=== PATIENT | male | born 1955 | race Caucasian/White ===

== ENCOUNTER 2018-07-18 04:29 | Emergency (ER) | payer MEDICAID, SELFPAY ==
[2018-07-18 06:51] LABS: HCT 46.7 % (40.0-50.0); HGB 15.8 g/dL (13.5-17.5); Mean Corp. HGB Concentration 33.8 g/dL (32.0-36.0); Mean Corpuscular Hemoglobin 31.8 pg (27.0-33.0); RBC 4.97 m/cumm (4.50-6.00)
[2018-07-18 06:52] LABS: Absolute Basophil Count 0.01 k/cumm (0.0-0.2); Absolute Eosinophil Count 0.18 k/cumm (0.0-0.7); Absolute Lymphocyte Count 1.87 k/cumm (1.2-3.4); Absolute Monocyte Count 2.04 k/cumm (0.11-0.7); Absolute Neutrophil Count 15.45 k/cumm (1.2-6.7); Basophils % 0.1; Eosinophils % 0.9; Immature Grans % 0.3; Lymphocytes % 9.5; Mean Platelet Volume 11.5 fL (8.0-11.0); Monocytes % 10.4; Neutrophils % 78.8; Platelet Count 173 x1000/uL (130-400); RBC Distribution Width 14.1 % (11.8-14.1)
[2018-07-18 06:56] LABS: Anion Gap 6.8 mmol/L (3-11); BUN 28 mg/dL (7-18); CO2 28.2 mmol/L (21.0-32.0); CREATININE 1.09 mg/dL (0.70-1.30); Chloride 104 mmol/L (98-107); Glucose 128 mg/dL (70-100); Magnesium 2.1 mg/dL (1.8-2.4); Sodium 139 mmol/L (136-145); Troponin I < 0.02 ng/mL (0.00-0.06)
== END 2018-07-18 07:00 | disposition home or self-care (01) ==
LOC: ER 07:07
PROVIDERS: Emergency Provider Emergency Medicine; PCP Internal Medicine
DX: T78.02XA Anaphylactic reaction due to shellfish (crustaceans), initial encounter (principal); I10 Essential (primary) hypertension
CPT/HCPCS: 36415; 80048; 93005; 96374; 96375; 99284; 83735; 84484; 85025; 93010

== ENCOUNTER 2018-12-20 12:09 | Outpatient (REF) | payer MEDICAID, SELFPAY ==
[2018-12-20 21:02] LABS: HCT 43.2 % (40.0-50.0); HGB 14.1 g/dL (13.5-17.5); Mean Corp. HGB Concentration 32.6 g/dL (32.0-36.0); Mean Corpuscular Hemoglobin 31.2 pg (27.0-33.0); Mean Corpuscular Volume 95.6 fL (80-95); Mean Platelet Volume 11.9 fL (8.0-11.0); Platelet Count 242 x1000/uL (130-400); RBC 4.52 m/cumm (4.50-6.00); RBC Distribution Width 13.9 % (11.8-14.1)
[2018-12-23 10:12] LABS: PSA, Diagnostic 2.4 ng/ml (0-4.5)
== END 2018-12-20 12:29 ==
LOC: NCHCN 12:09
PROVIDERS: PCP Internal Medicine; Visit Provider Internal Medicine
DX: D72.9 Disorder of white blood cells, unspecified (principal); Z12.5 Encounter for screening for malignant neoplasm of prostate; Z00.00 Encounter for general adult medical examination without abnormal findings
CPT/HCPCS: 85027; 84153

== ENCOUNTER → 2019-08-22 09:43 | Outpatient (BNVA) | payer MEDICARE, SELFPAY | PROVIDERS: PCP Internal Medicine; Referring Provider Internal Medicine; Visit Provider Physical Therapy Assistant | DX: R19.5 Other fecal abnormalities (principal); I10 Essential (primary) hypertension | CPT/HCPCS: 99213 ==

== ENCOUNTER 2019-09-29 09:15 | Outpatient (CLI) | payer MEDICARE, SELFPAY ==
[2019-09-30 12:24] LABS: COVID-19 RT-PCR UVMMC Result Negative (Negative)
== END 2019-09-29 09:35 ==
PROVIDERS: PCP Internal Medicine; Visit Provider Surgery
DX: Z03.818 Encounter for observation for suspected exposure to other biological agents ruled out (principal)
CPT/HCPCS: U0003

== ENCOUNTER 2019-10-02 06:22 | Day surgery (SDC) | payer MEDICARE, SELFPAY ==
--- NOTE | 2019-10-01 21:34 | HPE_ITS ---
Date of service: 10/02/19 Assessment and Plan Assessment and plan (1) Positive occult stool blood test: Status: Acute Assessment and plan: Plan:Colonscopy w/ MAC A complete H & P is required within 30 days of the procedure. MAC is used for the colonoscopy. Colonoscopy does not require antibiotics prophylaxis. Risks: Informed consent is obtained for the procedural (explained in simple layman's terms that the pt and/or family could understand) explaining risks vs benefits and alternatives to the procedure and consequences if we do not do the procedure and need/rational for the procedure. Risks include but are not limited to: bleeding, infection, perforation of colon. This would necessitate emergency surgery to repair the damage w/ possible ostomy; and other associated complications w/ the required surgery. Also complications of anesthesia including aspiration, ME/CVA/. I discussed with the patient would they could expect during the procedure, post procedure and recovery time and risks. The patient understands that they need to have a ride home after the procedure. The patient was given all this information in writing and expressed understanding. Thank you for allowing me to participate in the care of this Patient. A copy of the Endoscopy report will be forwarded to your office. If there are any questions or concerns please feel free to contact our office. (2) History of hemorrhoids: Status: Acute History of Present Illness Consults Consult date: 10/02/19 Narrative: from H&P august 2019 64 y/o male with a history of hemorrhoids would like to discuss having a Colonoscopy. He reports that he had a Positive iFOB test with his PCP in July 2019. He states at the time that he took the test he noted to have a small amount of visible blood in his stool. This has not occurred since that time. He reports a history of several Colonoscopy's prior, however dates unknown. Most recent Colonoscopy was performed at [facility] [place], however unable to locate these notes. He denies any changes to his bowel movements to include black tarry stools, change in the caliber of his stools, diarrhea or constipation. He reports a history of hemorrhoids, which he had surgery for about 2 years ago. He denies a family history of colon cancer. Of note he states his brother has a history of polyps. Patient is here today for colonoscopy for positive FIT testing. He has had no blood in his stools. He has had no pain or difficulty with bowel movements. His bowels are regular. He has had no weight loss. He had no problems with prepping. He had no blood in his stools. He has no abdominal pain today. He has no cough or fever. His Cobin test was negative and he isolated after his test. He does have a longstanding history of internal hemorrhoids. He had internal hemorrhoids banded with his last colonoscopy. We discussed the risks and benefits of hemorrhoid banding today. Including bleeding infections recurrence and pain. We discussed complications of colonoscopy including bleeding infection perforation aspiration and complications of anesthesia. He completed the prep without problems. And stable for the procedure today. Review of Systems All systems reviewed & are unremarkable except as noted in HPI and below PFS Medical History Asthma (Chronic) BPH with obstruction/lower urinary tract symptoms (Acute) History of hemorrhoids (Acute) with banding 2008 Hyperlipidemia (Acute) Hypertension (Chronic) Leukocytosis (Acute) Osteoarthritis of carpometacarpal (CMC) joint of right thumb (Acute) Personal history of anaphylaxis (Acute) Positive occult stool blood test (Acute ~06/2019) Skin lesion (Acute) Sleep disorder (Acute) Tremor (Acute) Surgical History History of colonoscopy (Chronic ~2009) History of tibial fracture (Acute) Tibial plateau fracture with hardware - left side Rupture of quadriceps tendon (Acute) Quadriceps tendon repair on right leg Social History Smoking/Tobacco Use Status: Former Tobacco Use Alcohol Intake: current Alcohol Intake frequency: a few times a month Alcohol type: beer Drug use: Never Do you feel safe at home: Yes Do you feel safe in your relationship?: Yes Meds Home Medications and Allergies Home Medications Medication Instructions Recorded Confirmed Type albuterol sulfate [ProAir HFA] 2 puff INHALATION PRN PRN 05/25/14 10/02/19 History aspirin [Aspirin Low-Strength] 81 mg PO DAILY 05/25/14 10/02/19 History budesonide-formoterol [Symbicort 1 puff INHALATION BID 05/25/14 10/02/19 History 160-4.5 Mcg Inhaler] epinephrine 0.3 mg IM ONCE PRN #2 each 07/18/18 10/02/19 Rx fluticasone propionate 50 2 spray CHERYLE DAILY 07/15/19 10/02/19 History mcg/actuation nasal spray,suspension losartan 25 mg tablet 25 mg PO DAILY 07/15/19 10/02/19 History bisacodyl 5 mg tablet,delayed 5 mg PO ONCE #4 tab 09/17/19 10/02/19 Rx release polyethylene glycol 3350 17 238 g PO ONCE #238 gm 09/17/19 10/02/19 Rx gram/dose oral powder Allergies Allergy/AdvReac Type Severity Reaction Status Date / Time atorvastatin Allergy Severe Verified 09/26/19 13:23 diltiazem Allergy Severe Verified 09/26/19 13:23 naproxen [From Naprosyn] Allergy Severe Verified 09/26/19 13:23 Exam Const General: cooperative, healthy appearing, comfortable, no acute distress, well developed and well groomed Nutritional Appearance: average body habitus and well nourished Orientation: alert, awake and oriented x3 HENMT Head: normal to inspection, normocephalic and atraumatic Ears: hearing grossly normal bilaterally and external ears normal General nose exam: external nose normal Face and sinus: normal facial exam and sinuses nontender Mouth: oral mucosae normal, lip normal, tongue normal and moist mucous membranes Teeth and gingiva: dentition normal Eyes General: appearance normal, both eyes and all related structures Conjunctivae: conjunctivae normal Sclera: sclerae normal Pupils: PERRL Neck Neck: normal visual inspection and full ROM Chest Chest: normal inspection of the chest Resp Effort & Inspection: normal respiratory effort, able to speak in complete sentences, no cough, no nasal flaring, not tachypneic and no use of accessory muscles Auscultation: clear to auscultation bilaterally, no rales, no rhonchi and no wheezes Cardio Jugular venous pressure: no JVD Rate: regular rate Rhythm: regular rhythm GI Inspection: normal to inspection, no edema and non-distended Palpation: soft, no masses, nontender and No ascites Auscultation: normal bowel sounds Skin General skin exam: no rashes or lesions noted Trauma: no lacerations or abrasions Neuro General: patient alert, patient oriented x3, oriented, gait normal, moves all extremities, no focal motor deficits and CN's II-XI intact bilaterally Cognition: normal cognition Speech: speech normal Gait: normal gait Motor: muscle tone normal throughout Extrem General: normal to inspection, full ROM and no clubbing, cyanosis or edema Psych Appearance: grossly normal and well kempt Mental Status: mental status grossly normal Speech and Movement: speech and movement normal Affect: normal affect COVID-19 Screening In the past 14 days, have you traveled outside of [place] or [place]?: NO
[2019-10-02 06:38] VITALS: BP 141/85; PULSE 60; RESP 16; TEMP 36.6; O2SAT 97
[2019-10-02] MEDS: Lactated Ringers 1,000 ML 80 ML IV (06:59)
--- NOTE | 2019-10-02 07:40 | W.PM.ENDDOP ---
Date of service: 10/02/19 Time of Service: 07:40 Endoscopy Report DATE OF PROCEDURE: 10/02/19 PRE-OP DIAGNOSIS: FIT+/hx of polyps and diverticula POST-OP DIAGNOSIS: other PROCEDURE: hot snare polypectomy /tattoing/clip @30cm. severe diverticular Dx. no active bleeding or infection SURGEON: Mariana Figueroa ANESTHESIA: MAC ESTIMATED BLOOD LOSS: 5 PATHOLOGY: none sent COMPLICATIONS: None DISPOSITION: same day PREP: Miralax/Dulcolax COLONOSCOPY RETRACTION TIME: 60 mins PROCEDURE DESCRIPTION: After informed consent was obtained the patient was taken to the procedure room and placed in a left decubitous position. Monitors were applied and a time out was done. The patients name, date of , procedure, allergies to medications and metal in their body was reviewed. The patient was then sedated. Once sedated and comfortable a rectal exam was done. Internal exam- Grade II/ small hemorrhoid at 7pm. Internal exam revealed a normal sphincter tone and no palpable masses. The prostate nl. The scope was then introduced and retrofelexed. sm Ext hemorrhoidal tag were identified. The scope was then advanced to the cecum w/ difficulty. The TI and appendiceal orifice were identified. The prep was adequate. The scope was then slowly retracted over 60 minutes back into the rectum. A lg 2cm polyp on a long stalk was identified. Polyp was removed at 30cm w/ a hot snare. This was removed in x2 pieces w/ a hot snare. A clip was placed across the stalk. no bleeding was noted. This polyp had adenomatous features. This area was tattooed as the polyp was so large. It is also noted that he has severe diverticula noted primarily in the sigmoid colon. He has multiple lg adn wide mouthed diverticula. These do carry all the way over to the right side of the colon. There are no signs of active bleeding or infection. He does have a small internal hemorrhoid at the 7 oclock position. This was successfully banded. no bleeding. The scope was removed and the patient was woken up and taken back to Same day surgery in stable condition. The patient tolerated the procedure well and there were no immediate complications. Follow up: The patient should follow up in .6-1 years unless they develop changes in bowel habits or other new gastrointestinal complaints.
--- NOTE | 2019-10-02 08:01 | BOWEL_PTH ---
PATIENT: Jan Goncalves LOC: [facility] U#:[id number] AGE/SX: 64/M ROOM: RE10/02/[address]: Mariana Figueroa : 1955 BED: DIS: 10/02/2019 SPEC #: [id number] RECD: 10/02/19 11:59 STATUS: CHALO LOPEZ #: [id number] HENNA: 10/02/19 08:[address]: Mariana Figueroa DEPT: Surgical Specimen RECD BY: Jenny Mercado ENTERED: 10/02/19 12:00 SP TYPE: Bowel OTHR DR: Loyd Falcon Tissues: 1 - BIOPSY BOWEL Procedures: GROSS AND MICRO LEVEL 4 Comments: [id number]
[2019-10-02] MEDS: Endoscopic Tattoo 5 ML SYR IJ (08:39)
[2019-10-02] MEDS: metroNIDAZOLE 500 MG/100 ML BAG 100 MG IVPB (09:13)
--- NOTE | 2019-10-02 09:20 | PDOC.DSDIS_ITS ---
Discharge Plan Disposition Patient Disposition: HOME Condition: Good Discharge Details Reason For Visit: colon scope Attending Provider: Mariana Figueroa Primary Care Provider: Loyd Falcon Home Meds and New Rx's Prescriptions: New metronidazole [Flagyl] 500 mg tablet 500 mg PO TID 7 Days Qty: 21 RF: 0 ciprofloxacin HCl 500 mg tablet 500 mg PO BID Qty: 14 RF: 0 Continued losartan 25 mg tablet 25 mg PO DAILY RF: 0 fluticasone propionate 50 mcg/actuation spray,suspension 2 spray CHERYLE DAILY RF: 0 budesonide-formoterol [Symbicort] 10.2 GM HFA aerosol inhaler 1 puff Inhalation BID RF: 0 albuterol sulfate [ProAir HFA] 200 PUFF HFA aerosol inhaler 2 puff Inhalation PRN PRNRF: 0 epinephrine 0.3 mg/0.3 mL auto-injector 0.3 mg IM ONCE PRN (Reason: anaphylaxis) Qty: 2 RF: 0 Discontinued polyethylene glycol 3350 17 gram/dose powder 238 g PO ONCE Qty: 238 RF: 0 bisacodyl [Dulcolax (bisacodyl)] 5 mg tablet,delayed release (DR/EC) 5 mg PO ONCE Qty: 4 RF: 0 aspirin [Aspirin Low-Strength] 81 MG tablet,chewable 81 mg PO DAILY RF: 0 Discharge Instructions Instructions: High Fiber Diet (GEN), Low Fiber Diet (GEN) Additional Instructions: Findings:severe diverticular Dx x1 sm internal hemorhoid large polyp at 30cm- -low fiber diet x 5 days. Than can resume regular diet and transition to high fiber diet. Will need to start on a fiber supplement. -Expect to have bleeding w/ first BM! If heavy bleding or passing clots- return to ED. -no ASA/NSIAD's for 2 wks Follow up:2 wks [place] and on Sunday Please call if you develop: fevers >101.5 Nausea or Vomiting Abdominal pain that is not transient DAY SURGERY UNIT POST COLONOSCOPY INSTRUCTIONS 1. Because there will be medication in your system for the next 24 hours, you may feel a little sleepy. Your coordination will be affected. Therefore: a. Do not drive or operate dangerous equipment for 24 hours. b. Do not drink alcohol beverages for 24 hours (not even beer). c. Plan to go home and rest for the day. 2. Generally there are no restrictions on your activity after a day or so has gone by, but you may feel a bit fatigued for a few days. 3 After you arrive home you may have a light meal and return to a normal diet as you can tolerate it without feeling sick to your stomach. 4. After surgery, you may feel pain or discomfort. This should be only transient, but if it persists please contact your doctor. 5. If there are any questions regarding the findings of your procedure, please feel free to contact your doctor. 6. If you are unable to contact your doctor with a problem, contact the hospital at [phone]. 7. Continue all your regular medications unless directed otherwise. I understand the above instructions and have no questions. Signature of Patient or Responsible Adult Escort Date/Time Name of Responsible Adult Escort Signature of Nurse Date/Time Taking a Fiber Supplement Dietary fiber is a plant-based nutrient that's necessary for the healthy functioning of your digestive system. In addition to helping your bowels stay regular, it's also useful for maintaining optimum cholesterol and blood sugar levels as well as a healthy weight. Although it's technically a carbohydrate, it's not the kind that can be broken down into digestible sugars by the body. Instead, fiber travels through your digestive system while bulking and softening your stool?making it easier to pass. It also helps absorb excess blood sugars and cholesterols. The [place] [employer] recommends 30 grams (g) of fiber a day for men, and 25g a day for women. Fiber is found in fruits, vegetables, legumes, and whole grains, and is an important part of the diet. But because many people find it difficult to eat the recommended quantity of 25 to 38 g per day, fiber supplementation can be extremely helpful to ease the symptoms of a variety of digestive discomforts like diarrhea and constipation. Today, many fiber supplements are found on the market containing one of three active ingredients: psyllium, methylcellulose, and polycarbophil Health Benefits If you have diarrhea, supplementing with fiber can bulk up the stool and reduce frequent urges to evacuate the bowel. If you have constipation, fiber supplements can soften your stool and speed up its movement through the colon. To understand how fiber helps relieve symptoms of both diarrhea and constipation, it's important to differentiate between soluble fiber and insoluble fiber. Soluble fiber forms a gel in your colon by absorbing water and retaining it in your stool, which makes bowel movements softer and easier to pass. Insoluble fiber bulks stool up, which also helps it move through your intestines more easily. Thus, fiber can also help you avoid hemorrhoids and anal fissures that can develop when straining to pass a bowel movement. Additionally, supplementing with fiber can be part of a treatment plan for conditions such as irritable bowel syndrome (IBS), various types of inflammatory bowel disease (IBD) like Crohn's disease and ulcerative colitis, as well as diverticulosis. Fiber increases satiety, or fullness, and is thus helpful for those looking to lose weight or maintain a healthy weight. Sufficient fiber intake has also been shown to decrease the risk of certain cancers, heart disease, and diabetes. There is also evidence that enough fiber, when combined with a diet rich in Vitamin A, has a protective effect against food allergies. Possible Side Effects The potential side effects of fiber supplementation include: ? Gas and gas pain ? Abdominal bloating ? Lowered blood sugar ? Diarrhea or constipation (if taken in excess) ? Weight loss ? Lessened effectiveness of medications and vitamins (if taken at the same time as fiber) Because of the way fiber supplements bulk up in the intestinal tract and absorb surrounding materials, they can interfere with the body's ability to assimilate medications, vitamins, and nutrients. For that reason, it's important to consume fiber supplements at least one hour after, or two hours before, taking medications and important vitamins. Dosage and Preparation Fiber supplements often come in the form of powders meant to be mixed with water or another liquid. They also are available in capsule form, or as additives to foods like crackers, cookies, cereals, and bars. Dosage will vary based on the product and your desired effects. If you are healthy, it's generally recommended to start with a low dose of fiber and build up until you've reached optimum total daily fiber intake?roughly 25g for women and 38g for men?which should also include your dietary sources of fiber What to Look For When shopping for fiber, look closely at the ingredients to discover which form of fiber is used in each commercial brand. Also, if you're avoiding added sugar, salt, flavorings, or dyes, check the label for these common additives. If you're just starting with a fiber supplement, use a low dose and drink plenty of water when you take the supplement and throughout the day. If you are not used to eating a high fiber diet/taking a supplement, start with about half of the recommended dose. Always remember to take fiber with 8oz of water. Continue at this dose for about 2-3 weeks, and then slowly increase up to the full dose daily. Fiber is a natural product- you can increase the dose to 2-4 times a day as needed to have a formed BM without straining. Increase the dose slowly until you reach either the desired total intake or a specific effect. Psyllium Psyllium is made from the seeds of a plant in the Plantago genus and contains about 70% soluble fiber and 30% insoluble fiber. It helps the stool absorb water and bulks it up, making it easier to pass. It also breaks down in the gut (a process called fermentation) and becomes a food source for the good bacteria that reside there. Psyllium is used for treating constipation, irritable bowel syndrome (IBS), and diverticulosis. In addition, psyllium may lower cholesterol levels and provide some protection from heart disease. On the downside, psyllium may cause intestinal gas and conta ins a small number of calories (roughly 20 calories per tablespoon). Psyllium is sold under the brand names Metamucil, Fiberall, Hydrocil, Konsyl, Perdiem, and Serutan. Methylcellulose Methylcellulose is a non-allergenic and non-fermentable fiber created from the cell farias of plants. Instead of being absorbed by the intestinal tract, methylcellulose pulls in water to create a softer stool. Methylcellulose is often used to treat constipation, diverticulosis, IBS, and some causes of diarrhea. Because it does not ferment, it is less likely than psyllium to cause intestinal gas; however, methylcellulose does not feed healthy gut bacteria the way psyllium does. It can be used [employer] but it should be noted that, because it can interfere with absorption, methylcellulose should be taken apart from any prescribed medications. Methylcellulose is sold under the brand name Citrucel. Polycarbophil Similar to methylcellulose, polycarbophil absorbs water in the intestinal tract and creates a bulkier and softer stool. Because it does not ferment and is not absorbed by the body, polycarbophil is less likely to cause bloating and can, therefore, be comfortably used [employer]. Polycarbophil may be used to treat constipation, IBS, and diverticulosis, but is not appropriate for people who have difficulty swallowing. Like methylcellulose, it should be taken about two hours apart from medications. Polycarbophil is sold under the brand names Fibercon, Fiber-Lax, Equalactin, and Mitrolan. Other Questions What are the best dietary sources of fiber? Whether or not you choose to supplement with fiber, it's still important to include a variety of high-fiber foods in your diet, such as: ? Fresh fruit (pears, apples, strawberries, bananas) ? Fresh vegetables (broccoli, Brussel sprouts, beets, and carrots) ? Legumes (lentils, split peas, kidney beans, chickpeas, black beans, escobedo beans) ? Whole Grains (quinoa, oats, brown rice, millet, barley) ? Other food sources of fiber (popcorn, sweet potatoes, and comfort) What time of day is best? Different manufacturers may have varying recommendations on when and how frequently to take fiber supplements. You may want to divide your daily dose into two or three portions to reduce bloating and gas that could occur when taking a large dose all at once. To avoid malabsorption, it's important to take medications or vitamins either one hour before, or two hours after, taking fiber supplements. If using a powdered form of fiber, be sure to dissolve it well. No matter what kind of fiber supplement you are using, be sure to drink plenty of water, at least 8ox, unless you are on fluid restrictions. High Fiber Diet What is Dietary Fiber? All fiber comes from plants, bushes, arsh or trees. Of course, the ones that we eat provide us with fruits, vegetables and grains. There are many different types of fiber but the three that are most important to the health of the body are: Insoluble Fiber This fiber does not dissolve in water, nor is it fermented by the bacteria residing in the colon. Rather, it retains water and in so doing, helps to promote a larger, bulkier and more regular bowel activity. This, in turn, may be important in preventing disorder such as diverticulosis and hemorrhoids, and in sweeping out certain toxins and cancer causing carcinogens. Sources of insoluble fiber are: ? whole grain wheat and other whole grains ? corn bran, including popcorn, unflavored and unsweetened ? nuts and seeds ? potatoes and the skins from most fruits from trees such as apples, bananas and avocados ? many green vegetables such as green beans, zucchini, celery and cauliflower ? some fruit plants such as tomatoes and kiwi Soluble Fiber These fibers are fermented or used by the colon bacteria as a food source or nourishment. When these good bacteria grow and thrive, many health benefits occur in both the colon and the body. Soluble fiber is present in some degree in most edible plant foods, but the ones with the most soluble fiber include: ? legumes such as peas and most beans, including soybeans ? oats, rye and barley ? many fruits such as berries, plums, apples bananas and pears ? certain vegetables such as broccoli and carrots ? most root vegetables ? psyllium husk supplement products Prebiotic Soluble Fiber These are relatively newly discovered soluble plant fibers. The technical name for this fiber is inulin or fructan. When these soluble fibers are fermented by the good colon bacteria, some further significant health benefits have been shown to occur by research in many medical centers. These soluble prebiotic fibers occur in significant amounts in: ? asparagus ? yams ? onions ? garlic ? bananas ? leeks ? agave ? chicory and other root vegetables such as [place] artichokes ? wheat, rye and barley (smaller amounts) Benefits of a High Fiber Diet The health benefits of a high fiber diet, consumed on a regular basis and reaching recommended amounts (below), are now fairly well-defined. There are so me additional benefits in the early research stage with the prebiotic soluble fibers. What is now known regarding a high fiber diet include: Bowel Regularity A high fiber diet promotes regularity with a softer, bulkier and regular stool pattern. This decreases the chance of hemorrhoids, diverticulosis and perhaps colon cancer. Cholesterol and Reduced Triglycerides The soluble fibers are the ones that will reduce cholesterol levels when used on a regular basis. Psyllium husk and prebiotic soluble fiber will also reduce cholesterol. They may also reduce the incidence of coronary heart disease. Oats, flax seeds and legumes or beans are the recommended fibers. Colon Polyps and Cancer It is still not certain if a high fiber diet helps prevent colon cancer. Considerable research suggests that this may occur. Certainly it makes sense to increase regularity and so speed the movement of cancer causing carcinogens through the bowel. In addition, reducing a heavy meat diet reduces the bile flow from the liver in a favorable way. This, too, reduces the amount of carcinogens that reach and are manufactured in the colon. Finally, a high fiber diet, including prebiotic soluble fiber, increases the integrity and health of the wall of the colon. The risk of cancer may be reduced. Colon Wall Integrity A high fiber diet changes the bacterial makeup of the colon toward a more favorable balance. For instance, it is known that those people with obesity, diabetes type 2 and inflammatory bowel disease have a predominance of bad bacteria in the colon. This, in turn, may render the bowel wall weak and allow bacteria and, indeed, even toxins to seep through. A high fiber diet with a modest reduction in animal and meat products may return the bacterial makeup to a more positive balance. This, in particular, has been seen when the soluble fiber prebiotics are added to the diet. Blood Sugar Soluble fiber such as in legumes (beans), oats and in prebiotic fibers slows the absorption of blood sugar and so helps regulate the sugar in the blood. Insoluble fiber on a regular basis is associated with reduced risk of type 2 diabetes. Weight Loss High fiber diets are more filling and give a sense of fullness sooner than an animal and meat based diet does. In addition, the soluble prebiotic fibers have been shown to turn off the hunger hormones produced in the wall of the gut and to increase the hormones that give a sense of fullness. Those hormones are made in the wall of the gut. New medical research has shown that the bacterial makeup in the colon in overweight people is abnormal to the extent that they manufacture and absorb almost twice the number of calories through the colon wall as do normals. Prebiotic fibers (below) will help change this hormonal balancein a favorable way. Bacteria and the Function of the Colon The colon finishes the digestive process. Hopefully, the waste products move through in a nice regular manner. Insoluble fibers help this process by retaining water and so producing a bulkier, softer stool, which is easy to pass. The additional role of the colon is to provide a home for an enormous number of micro-organisms, mostly bacteria. Recent research has shown that there are over 1,000 species of bacteria with a total bacterial count ten times the number of cells in the body. These bacteria play a major role in keeping the colon wall itself healthy. In addition, these good bacteria produce a very strong immune system for the body. They significantly increase calcium absorption and bone density. They provide other documented benefits. It is the soluble fibers in the diet that are so effective in stimulating the growth of good colon bacteria. How Much is Enough? The amount of fiber in food is measured in grams. National nutritional authorities recommend the following amounts of dietary fiber daily. Under Age 50 Over Age 50 Men 38 grams 30 grams Women 25 grams 21 grams For a week or so, it is best to tally the amount of fiber you are consuming. Boxed and packaged foods will have the amount of fiber per serving on the nutrition label. Which Fibers and Which Foods are Best? As noted, healthy fiber is only found in plants. The three major categories are whole grains, fruits and vegetables. Whole Grains Wheat, oats, barley, wild or brown rice, amaranth, buckwheat, bulgur, corn, millet, quinoa, rye, sorghum, teff and triticals. By far, wheat, oats and wild or brown rice are most common. Always buy whole grain products. White bread, baked goods and rolls almost always are made from wheat flour. Wheat flour is white because most of the fiber, vitamins and other nutrients have been removed. Try not buy enriched grains. What this means is that simple white flour has had vitamins added to it by the plastic roller. The word, enriched, implies a good and healthy product. On the contrary, enriched means that most of the fiber has been removed and a few vitamins added. Fruits Fruits come from trees such as apple and pear or from bushes or arsh. You should eat a wide variety of fruits, preferably with every meal. In many cases, the skin of a fruit such as apple will contain much of the insoluble fiber while the pulp contains most of the soluble fiber. To the extent possible, buy organic fruits as these will have little or no pesticides. Always wash fruit. Vegetables Eat a wide variety of vegetables. They should be a mainstay of lunch and dinners. Frozen vegetables retain as much nutrition and fiber as fresh vegetables. As with fruit, try to buy organic to reduce any residual pesticide ingestion. Wash fresh vegetables thoroughly. Cruciferous vegetables such as broccoli, [place] sprouts and cauliflower contain certain chemicals such as sulforaphane. This substance has very strong anti-cancer properties and should be eaten frequently. Legumes, Beans, Peas and Soybeans These vegetables have plenty of soluble fiber and should be part of a varied vegetable intake. Beans, in particular, contain a certain type of fiber that may lead to harmless gas or bloating. Nuts and Seeds These are rich sources of fiber and are a good substitute for sweets such as candies and baked sweet goods. While nuts and seeds are rich in fiber, they also contain vegetable fat and so can and do add calories. Read the Labels As noted, fresh and frozen foods are usually better. They have good nutrition and few, if any, chemicals added to them. When buying packaged foods and, in particular grains, look for three things: ? The first word on the label should be whole, such as whole wheat or whole grain. ? Check out the calories and the amount of fiber in a serving. ? How many and what other additives or chemicals are added. Fewer is always better. Do you know what each additive does? Some are added not for the benefit of the layer off but rather for manufacturers. These could and do include sugar, artificial flavor, chemicals to prevent oxidation and spoilage, emulsifiers to blend the product. You have to be a business mgr. Fiber Facts, Nuggets and Pearls ? For breakfast you can easily get the day started well by using a high fiber, whole grain cereal. Check the labels. Add fruit such as blueberries and bananas. If you are an egg eater, use whole wheat or grain toast. Adding wheat germ gives you a good fiber kick. ? Always use whole grain or wheat with rolls and sandwiches. Does your fast food store not have them? Perhaps you look elsewhere. Eating an occasional black camacho or veggie burger provides variety. ? Snacks should consist of fruit and/or nuts. While nuts are loaded with fiber, they are an energy rich food, meaning they have a lot of calories in a small packet. ? Fruit juices should contain pulp. Clear juices such as clear orange, pear or apple juice contain little fiber and have a lot of fructose. Prune juice is usually high in fiber. ? Homemade soups ? adding fresh or frozen vegetables to a chicken or vegetable stock is a good way to start homemade soup. ? Salads ? adding cooked and then chilled vegetables provide great flavoring to almost any salad. Remember, a patel salad has lots of cooked corn in it. Small slices of apples or oranges and nuts such as chopped walnuts or sliced almonds always adds taste, variety and fiber to almost any salad. ? Fruit ? Try to eat fruit of some type with almost every meal. ? Rethink how you place the various foods on your dinner plate. Reducing the portions of the meat or animal food portion to the side with equal or more portions of vegetables, legumes and fruits portion always allows for more fiber. There was never anything magic about making the meat or animal food portion the main part of the dinner plate. Eating from smaller plates can, over time, trick your mind and prison habit of using a dinner plate. Again, there is nothing magic in an 11, 12, or 13 inch dinner plate. Fiber Supplements There are a variety of fiber supplements available on the food or pharmacy shelves. Psyllium This soluble plant fiber has been used in [place] for over 2,000 years. It is a soluble fiber with mucilage in it. This acts to retain a lot of water and also is fermented by colon bacteria. When 7 grams a day are used, it does lower cholesterol. Metamucil in various forms is psyllium. Methyl Cellulose All the cellulose products come from finely ground wood chips which are then treated in a variety of ways such as boiling in acids. Methyl cellulose is an insoluble fiber which does dissolve in water. It is also an emulsifier, meaning it blends oils and water. Citrucel is methyl cellulose (MC). MC may not be appropriate for Crohn?s disease or ulcerative colitis as several medical studies have shown that certain emulsifiers dissolve the mucous lining of the colon in animals prone to Crohn?s disease. This then allows bacteria to invade the underlying tissue. Inulin Inulin is a soluble prebiotic fiber found in many foods and which are fermented mostly in the left side of the colon. It is available in a supplement as generic inulin and in Fiber Choice. Oligofructose FOS These are also prebiotic fibers. They are fermented very quickly in the right side of the colon. Prebiotin This product is a combination of oligofructose, which feeds the bacteria in the right side of the colon and inulin, which does the same in the left side of the colon. There seems to be a benefit for this particular formula based on medical research. Prebiotic Soluble Fiber These may be the healthiest of all the soluble fibers. They grow in many plants and have had a great deal of research done on them in the last 10-15 years. These fibers are found in asparagus, yams and other root vegetables such as chicory, garlic, onion, leeks and in smaller amounts in wheat. This research has shown the following: ? Increase in good and decrease in bad colon bacteria ? Increase calcium absorption and enhanced bone mass ? Enhanced immune system ? Appetite and weight control by changing the hormone appetite signals to the brain ? May decrease colon cancer incidence ? Reduce or correct a leaky colon Eating a wide variety of plant food up to the recommended amount will likely give you enough prebiotic fiber. Supplements such as Prebiotin can be added to the diet. Short Chain Fatty Acids (SCFA) Some rather remarkable research findings have shown that one of the benefits of ingesting a lot of soluble fiber, in particular the prebiotic ones, results in larger amounts of SCFAs in the colon. These SCFAs are made by the good bacteria in the colon such as Bifidobacter and Lactobacillus. These small molecules have been shown to do the following: ? Enhance the health and integrity of the colon wall ? Provide nourishment for the cells that actually line the colon ? Increases the acidity of the colon which is a very real health benefit ? Stabilize blood sugar for diabetics ? Reduce blood cholesterol and triglyceride ? Significantly enhance immunity ? May be a benefit for Crohn?s disease and ulcerative colitis patients Fiber and Gas Everyone has intestinal gas and that is a good thing. It means that bacteria, hopefully the good ones, are thriving. The normal amount of flatus passed each day depends on sex and what is eaten. The normal number of flatus is 10-20 times a day. When the bacteria that make intestinal gases are growing, it also means that other good bacteria are using the same fibers to grow and produce multiple health benefits, including the production of healthy short-chain fatty acids. These substances are produced quietly in the colon and produce many health-related outcomes. Soluble fiber should always be used in a gradual manner. If too much is consumed at any one time, then excess, but harmless, intestinal gas can occur. People with irritable bowel syndrome are particularly prone to bloating and mild cramping. In this instance, soluble fiber in the diet or supplement should be used in small doses and increased gradually. Finally, prebiotic fibers tend to cause the production of short-chain fatty acids which acidify the colon. This, in turn, reduces or stops the growth of bacteria that make the smelly hydrogen sulfide gases that produce noxious flatus. People who consume many vegetables with prebiotics or take a prebiotic fiber supplement often have non-odoriferous flatus. Fiber and Irritable Bowel Syndrome Irritable bowel syndrome (IBS) is one of the most common disorders of the lower digestive tract. The symptoms of IBS can be quite varied. They can be a mix of several symptoms such as constipation, diarrhea, crampy abdominal discomfort, bloating and gas. An attack of IBS can be triggered by emotional tension and anxiety, poor dietary habits and certain medications. It is now known that infections in the intestine can lead to long-term IBS symptoms. Increased amounts of fiber in the diet can help relieve the symptoms of irritable bowel syndrome by producing soft, bulky stools. This helps to normalize the time it takes for the stool to pass through the colon. Recent medical research with newer techniques has shown some surprising and dramatic findings for IBS patients. Specifically, there is a very significant and abnormal shift of bacteria from those that provide health benefits to those bad bacteria that we really do not want in the gut. The technical name for this bad group of bacteria is called Firmicutes. Along with this abnormal bacterial collection, there is a smoldering low-grade inflammation in the gut wall that may contribute to symptoms. The goal for IBS patients should be to gradually increase the soluble dietary fibers in the diet so as to promote the growth of good bacteria and so suppress the bad ones along with the associated inflammation. IBS patients need to be careful of the amount of soluble fiber they consume. The reason for this is that, while the good colon bacteria thrive on these fibers and produce health benefits, other gas-forming bacteria may generate excessive but harmless gas and subsequent bloating. Thus, soluble plant fibers or a dietary prebiotic supplement should be taken in small initial doses and then gradually increased to tolerance. Fiber and Colon Polyps/Cancer Colon cancer is a major health problem. This disease is most common in Western cultures. It is not seen very often in rural cultures where the diet is mostly plant based. Usually, colon cancer starts out as a colon polyp, a benign mushroom-shaped growth. In time it grows, and in some people it becomes cancerous. Colon cancer is usually always curable if polyps are removed when found or if surgery is performed at an early stage. It is now known that people can inherit the risk of developing colon cancer, but diet is important, too. As noted, there is a very low rate of colon cancer in residents of countries where grains are unprocessed and retain their fiber. It seems that in the [place] world, cancer-containing agents (carcinogens) remain in contact with the colon wall for a longer time and in higher concentrations. So, a large bulky stool may act to dilute these carcinogens by moving them through the bowel more quickly. Less carcinogenic exposure to the colon may mean fewer colon polyps and less cancer. A very current review of the entire world?s literature on the effect of fiber on colon polyps and cancer prevention has shown rather clearly that for every 10 grams of fiber added to the diet, there is a 10% reduction in incidence of colon cancer. So the recommended 30 gram fiber diet would result in a 30% less chance of getting these tumors. There are also substances produced in the colon by the good bacteria that seem to retard certain pre-cancer factors from developing. They are called short- chain fatty acids (SCFA). See above for description of SCFAs. A high fiber diet increases these substances. So, the combination of dietary fiber and the production of short-chain fatty acids have a clear health benefit. Fiber and Diverticulosis Prolonged, vigorous contraction of the colon over a long period of time may result in diverticulosis. This increased pressure causes small and, eventually, larger ballooning pockets to form. These pockets by themselves cause no probl em. However, sometimes they become infected (diverticulitis) or even break open (perforate) causing infection or inflammation within the abdomen (peritonitis). A high fiber diet increases the bulk in the stool and thereby reduces the pressure within the colon. By so doing, the formation of pockets may be reduced or possibly even stopped. In the past, many physicians were fearful that seeds as in tomatoes, nuts or berries were harmful and could get inside these pockets and rattle around, causing damage. We now know that this has never been the case and that these foods contain lots of fiber and are actually beneficial for diverticulosis patients. Certain bulking agents such as psyllium are traditional types of bulk producing supplements. Psyllium is a soluble fiber. Combining it with insoluble fiber as in wheat bran or corn bran (no gluten) can enhance this bulking effect even more. A product containing a prebiotic, psyllium and wheat bran is probably a very good combination for bowel regularity. Prebiotin Regularity/Diverticulosis is one such product. Inflammatory Bowel Disease (IBD) IBD means Crohn?s Disease (CD) or Ulcerative Colitis (UC). CD is an inflammation of the lower small bowel and/or the colon. Bacteria actually invade and cause inflammation in the entire wall of the intestine. UC, on the other hand, is an inflammation just of the lining of the colon. It usually starts in the rectum and left colon and may spread to the entire colon from there. It is now known that in both CD and UC that the bacterial make up is abnormal. This means that there are significantly more of the bad bacteria present than the good ones. These abnormal bacteria are called Firmicutes. Fiber and Crohn?s Disease There is now some information in the medical literature on what type of diet may be harmful and what may help Crohn?s Disease. A reduction in red meat is likely helpful. So is reducing the fat in the diet, including vegetable oils. More importantly, people who had low fiber ingestion in the diet had a greater chance of getting CD. So, a gradual increase in the amount of fiber is likely helpful in hopefully preventing CD. This should always be done in conjunction with the physician. It should be done gradually and should include soluble fibers which fertilize the best colon bacteria. The good bacteria grow and push out the bad ones. These good bacteria provide short chain fatty acids, which can help heal the bowel wall. Prebiotics such as Prebiotin are available. Fiber and Ulcerative Colitis We still do not have strong evidence in the medical literature on what is the best diet for UC. Eating plenty of soluble fiber, including prebiotic fibers will nourish the best colon bacteria. It is hoped that this will result in a decrease in the bad or Firmicutes bacteria. It is well-known that when the good bacteria proliferate that they produce lots of acid substances called short chain fatty acids (SCFA). The SCFAs actually nourish the cells of the colon wall, the very ones that become inflamed in UC. In addition, when the colon contents become acid, the smelly sulfide gases are not produced and the flatus becomes less noxious and may even have no smell at all. This may have a beneficial effect on the inflammation. Prebiotics such as Prebiotin are the best type of soluble fiber. Stand Alone Forms: Colonoscopy Post Instructions, Angelique Ward ([facility]) Activity:: no lifting over 20#'s or strenuous activity x 5 days Diet:: low fiber Discharge Orders Discharge Orders: Discharge Order (Routine); Ordered 10/02/19 Ordered By: Mariana Figueroa DS: Diagnosis Discharge Diagnosis (1) Positive occult stool blood test: Status: Acute (2) History of hemorrhoids: Status: Acute
[2019-10-02 09:44] VITALS: BP 140/85; PULSE 63; RESP 16; TEMP 36.2; O2SAT 94
[2019-10-02] MEDS: CIPROFLOXACIN 200 MG/100 ML BAG 100 MG IVPB (10:20)
[2019-10-02 10:55] VITALS: BP 156/87; PULSE 80; RESP 16; TEMP 36.2; O2SAT 94
== END 2019-10-02 12:05 | disposition home or self-care (01) ==
PROVIDERS: PCP Internal Medicine; Visit Provider Surgery
PROC: 0DJD8ZZ Inspection of Lower Intestinal Tract, Via Natural or Artificial Opening Endoscopic (ICD-10-PCS; CPT 45378; principal; 2019-10-02 07:30)
DX: R19.5 Other fecal abnormalities (principal); Z87.19 Personal history of other diseases of the digestive system; K57.30 Diverticulosis of large intestine without perforation or abscess without bleeding; K64.1 Second degree hemorrhoids
CPT/HCPCS: 45385; 45381; 45398; 88305; 96365; 96366; NC; J0744; J2001

== ENCOUNTER → 2019-10-03 09:59 | Outpatient (BNVA) | payer MEDICARE, SELFPAY | PROVIDERS: PCP Internal Medicine; Referring Provider Internal Medicine; Visit Provider Surgery | DX: Z48.815 Encounter for surgical aftercare following surgery on the digestive system (principal); K57.30 Diverticulosis of large intestine without perforation or abscess without bleeding; D12.5 Benign neoplasm of sigmoid colon; Z87.19 Personal history of other diseases of the digestive system; R19.5 Other fecal abnormalities ==

== ENCOUNTER → 2019-10-15 10:03 | Outpatient (BNVA) | payer MEDICARE, SELFPAY | PROVIDERS: PCP Internal Medicine; Referring Provider Internal Medicine; Visit Provider Surgery | DX: D12.5 Benign neoplasm of sigmoid colon (principal); K57.30 Diverticulosis of large intestine without perforation or abscess without bleeding; Z87.19 Personal history of other diseases of the digestive system; Z48.815 Encounter for surgical aftercare following surgery on the digestive system; K21.9 Gastro-esophageal reflux disease without esophagitis; R10.9 Unspecified abdominal pain; N40.1 Benign prostatic hyperplasia with lower urinary tract symptoms; N13.8 Other obstructive and reflux uropathy; I10 Essential (primary) hypertension | CPT/HCPCS: 99212; 99213 ==

== ENCOUNTER → 2020-03-05 10:08 | Outpatient (BNVA) | payer MEDICARE, SELFPAY | PROVIDERS: PCP Internal Medicine; Referring Provider Internal Medicine; Visit Provider Surgery | DX: K57.30 Diverticulosis of large intestine without perforation or abscess without bleeding (principal); Z86.010 Personal history of colon polyps; Z80.1 Family history of malignant neoplasm of trachea, bronchus and lung; Z80.42 Family history of malignant neoplasm of prostate; I10 Essential (primary) hypertension | CPT/HCPCS: 99212; 99213 ==

== ENCOUNTER 2020-03-11 08:15 | Day surgery (SDC) | payer MEDICARE, SELFPAY ==
[2020-03-11 08:33] VITALS: BP 132/92; PULSE 75; RESP 16; TEMP 36.7; O2SAT 96
[2020-03-11] MEDS: Lactated Ringers 1,000 ML 100 ML IV (08:58)
--- NOTE | 2020-03-11 11:17 | W.PM.DSUDISC ---
Discharge Plan Disposition Patient Disposition: HOME Condition: Good Discharge Details Reason For Visit: colon scope Attending Provider: Mariana Figueroa Primary Care Provider: Loyd Falcon Home Meds and New Rx's Prescriptions: No Action losartan 25 mg tablet 25 mg PO DAILY RF: 0 fluticasone propionate 50 mcg/actuation spray,suspension 2 spray CHERYLE DAILY RF: 0 aspirin [Adult Aspirin Regimen] 81 mg tablet,delayed release (DR/EC) 81 mg PO DAILY RF: 0 budesonide-formoterol [Symbicort] 10.2 GM HFA aerosol inhaler 1 puff Inhalation BID RF: 0 albuterol sulfate [ProAir HFA] 200 PUFF HFA aerosol inhaler 2 puff Inhalation PRN PRNRF: 0 Discharge Instructions Additional Instructions: Findings: Severe diverticular dx no polyps! OK to resume ASA in 03/12. Follow up: repeat in 1 time. Please call if you develop: fevers >101.5 Nausea or Vomiting Abdominal pain that is not transient DAY SURGERY UNIT POST COLONOSCOPY INSTRUCTIONS 1. Because there will be medication in your system for the next 24 hours, you may feel a little sleepy. Your coordination will be affected. Therefore: a. Do not drive or operate dangerous equipment for 24 hours. b. Do not drink alcohol beverages for 24 hours (not even beer). c. Plan to go home and rest for the day. 2. Generally there are no restrictions on your activity after a day or so has gone by, but you may feel a bit fatigued for a few days. 3 After you arrive home you may have a light meal and return to a normal diet as you can tolerate it without feeling sick to your stomach. 4. After surgery, you may feel pain or discomfort. This should be only transient, but if it persists please contact your doctor. 5. If there are any questions regarding the findings of your procedure, please feel free to contact your doctor. 6. If you are unable to contact your doctor with a problem, contact the hospital at [phone]. 7. Continue all your regular medications unless directed otherwise. I understand the above instructions and have no questions. Signature of Patient or Responsible Adult Escort Date/Time Name of Responsible Adult Escort Signature of Nurse Date/Time DIVERTICULAR DISEASE OVERVIEW ? A diverticulum is a pouch-like structure that can form through points of weakness in the muscular wall of the colon (ie, at points where blood vessels pass through the wall). Diverticulosis affects men and women equally. The risk of diverticular disease increases with age. It occurs throughout the world but is seen more commonly in developed countries. WHAT IS DIVERTICULAR DISEASE? Diverticulosis ? Diverticulosis merely describes the presence of diverticula. Diverticulosis is often found during a test done for other reasons, such as flexible sigmoidoscopy, colonoscopy, or barium enema. Most people with diverticulosis have no symptoms and will remain symptom free for the rest of their lives. A person with diverticulosis may have diverticulitis, or diverticular bleeding. Diverticulitis ? Inflammation of a diverticulum (diverticulitis) occurs when there is thinning and breakdown of the diverticular wall. This may be caused by increased pressure within the colon or by hardened particles of stool, which can become lodged within the diverticulum. The symptoms of diverticulitis depend upon the degree of inflammation present. The most common symptom is pain in the left lower abdomen. Other symptoms can include nausea and vomiting, constipation, diarrhea, and urinary symptoms such as pain or burning when urinating or the frequent need to urinate. Diverticulitis is divided into simple and complicated forms. ?Simple diverticulitis, which accounts for 75 percent of cases, is not associated with complications and typically responds to medical treatment without surgery. ?Complicated diverticulitis occurs in 25 percent of cases and usually requires surgery. Complications associated with diverticulitis can include the following: ?Abscess ? a localized collection of pus ?Fistula ? an abnormal tract between two areas that are not normally connected (eg, bowel and bladder) ?Obstruction ? a blockage of the colon ?Peritonitis ? infection involving the space around the abdominal organ ?Sepsis ? overwhelming body-wide infection that can lead to failure of multiple organs Diverticular bleeding ? Diverticular bleeding occurs when a small artery located within a diverticulum is eroded and bleeds into the colon. Diverticular bleeding usually causes painless bleeding from the rectum. In approximately 50 percent of cases, the person will see maroon or bright red blood with bowel movements. Is bleeding with a bowel movement normal? ? It is not normal to see blood in a bowel movement; this can be a sign of several conditions, most of which are not serious (eg, hemorrhoids) but some of which are serious and require immediate treatment. Anyone who sees blood after a bowel movement should consult with their healthcare provider to determine if further testing or evaluation is needed. DIVERTICULOSIS AND DIVERTICULITIS DIAGNOSIS ? Diverticulosis is often found during tests performed for other reasons. ?Barium enema ? This is an x-ray study that uses barium in an enema to view the outline of the lower intestinal tract. This is an older test and has been largely replaced by computed tomography (CT) scan. ?Flexible sigmoidoscopy ? This is an examination of the inside of the sigmoid colon with a thin, flexible tube that contains a camera. ?Colonoscopy ? This is an examination of the inside of the entire colon. ?CT scan ? A CT scan is often used to diagnose diverticulitis and its complications. If diverticulitis (not just diverticulosis) is suspected, the above three tests should not be used because of the risk of perforation. TREATMENT Diverticulosis ? People with diverticulosis who do not have symptoms do not require treatment. However, most clinicians recommend increasing fiber in the diet, which can help to bulk the stools and possibly prevent the development of new diverticula, diverticulitis, or diverticular bleeding. Fiber is not proven to prevent these conditions in all patients but may help to control recurrent episodes in some. Increase fiber ? Fruits and vegetables are a good source of fiber. Fiber content of packaged foods can be calculated by reading the nutrition label. Seeds and nuts ? Patients with diverticular disease have historically been advised to avoid whole pieces of fiber (such as seeds, corn, and nuts) because of concern that these foods could cause an episode of diverticulitis. However, this belief is completely unproven. We do not suggest that patients with diverticulosis avoid seeds, corn, or nuts. Diverticulitis ? Treatment of diverticulitis depends upon how severe your symptoms are. Home treatment ? If you have mild symptoms of diverticulitis (mild abdominal pain, usually left lower abdomen), you can be treated at home with a clear liquid diet and oral antibiotics. However, if you develop one or more of the following signs or symptoms, you should seek immediate medical attention: ?Temperature >100.1?F (38?C) ?Worsening or severe abdominal pain ?An inability to tolerate fluids Hospital treatment ? If you have moderate to severe symptoms, you may be hospitalized for treatment. During this time, you are not allowed to eat or drink; antibiotics and fluids are given into a vein. If you develop an abscess of the colon, you may require drainage of the abscess (usually performed by placing a drainage tube across the abdominal wall) or by surgically opening the affected area. Surgery ? If you develop a generalized infection in the abdomen (peritonitis), you will usually require an emergency operation. A two-part operation may be necessary in some cases. ?The first operation involves removal of the diseased colon and creation of a colostomy. A colostomy is an opening between the colon and the skin, where a bag is attached to collect waste from the intestine. The lower end of the colon is temporarily sewed closed to allow it to heal. ?Approximately three to six months later, a second operation is performed to reconnect the two parts of the colon and close the opening in the skin. You are then able to empty your bowels through the rectum. Sometimes patients require up to a year to recover from the first operation, depending on how sick they were. In non-emergency situations, the diseased area of the colon can be removed and the two ends of the colon can be reconnected in one operation, without the need for a colostomy. Surgery versus medical therapy ? An operation to remove the diseased area of the colon may be necessary if you do not improve with medical therapy. After an episode of uncomplicated diverticulitis, elective surgery is generally not required as the risk of another attack or requiring emergency surgery is low. However, patients with persistent symptoms attributable to diverticulitis, a history of complicated diverticulitis, or a compromised immune system should be evaluated for possible surgery to prevent another attack. In such patients, another attack has been associated with a higher risk of complications or . Of course, the decision will also depend in part upon your other medical conditions and ability to undergo surgery. In many cases, an elective operation can be performed laparoscopically, using small incisions, rather than the typical vertical (up and down) abdominal incision. Laparoscopic surgery usually allows you to recover more quickly and shortens the hospital stay. After diverticulitis resolves ? After an episode of diverticulitis resolves, if you have not had a recent colonoscopy, the entire length of the colon should be evaluated to determine the extent of disease and to rule out the presence of abnormal lesions such as polyps or cancer. Recommended tests include colonoscopy, barium enema and sigmoidoscopy, or CT colonography. Diverticular bleeding ? Most cases of diverticular bleeding resolve on their own. However, some people will need further testing or treatment to stop bleeding, which may include a colonoscopy, angiography (a treatment that blocks off the bleeding artery), bleeding scan, or surgery. DIVERTICULAR DISEASE PROGNOSIS Diverticulosis ? Over time, diverticulosis may cause no problems or it may cause episodes of bleeding and/or diverticulitis. Approximately 15 to 25 percent of people with diverticulosis will develop diverticulitis, while 5 to 15 percent will develop diverticular bleeding. Diverticulitis ? Approximately 85 percent of people with uncomplicated diverticulitis will respond to medical treatment, while approximately 15 percent of patients will need an operation. After successful treatment for a first attack of diverticulitis, one-third of patients will remain asymptomatic, one-third will have episodic cramps without diverticulitis, and one-third will go on to have a second attack of diverticulitis. The prognosis tends to remain similar following a second attack of diverticulitis. Only 10 percent of people remain symptom-free after a second attack. Subsequent attacks tend to be of similar severity, not increasing in severity as previously believed. High Fiber Diet What is Dietary Fiber? All fiber comes from plants, bushes, arsh or trees. Of course, the ones that we eat provide us with fruits, vegetables and grains. There are many different types of fiber but the three that are most important to the health of the body are: Insoluble Fiber This fiber does not dissolve in water, nor is it fermented by the bacteria residing in the colon. Rather, it retains water and in so doing, helps to promote a larger, bulkier and more regular bowel activity. This, in turn, may be important in preventing disorder such as diverticulosis and hemorrhoids, and in sweeping out certain toxins and cancer causing carcinogens. Sources of insoluble fiber are: ? whole grain wheat and other whole grains ? corn bran, including popcorn, unflavored and unsweetened ? nuts and seeds ? potatoes and the skins from most fruits from trees such as apples, bananas and avocados ? many green vegetables such as green beans, zucchini, celery and cauliflower ? some fruit plants such as tomatoes and kiwi Soluble Fiber These fibers are fermented or used by the colon bacteria as a food source or nourishment. When these good bacteria grow and thrive, many health benefits occur in both the colon and the body. Soluble fiber is present in some degree in most edible plant foods, but the ones with the most soluble fiber include: ? legumes such as peas and most beans, including soybeans ? oats, rye and barley ? many fruits such as berries, plums, apples bananas and pears ? certain vegetables such as broccoli and carrots ? most root vegetables ? psyllium husk supplement products Prebiotic Soluble Fiber These are relatively newly discovered soluble plant fibers. The technical name for this fiber is inulin or fructan. When these soluble fibers are fermented by the good colon bacteria, some further significant health benefits have been shown to occur by research in many medical centers. These soluble prebiotic fibers occur in significant amounts in: ? asparagus ? yams ? onions ? garlic ? bananas ? leeks ? agave ? chicory and other root vegetables such as [place] artichokes ? wheat, rye and barley (smaller amounts) Benefits of a High Fiber Diet The health benefits of a high fiber diet, consumed on a regular basis and reaching recommended amounts (below), are now fairly well-defined. There are some additional benefits in the early research stage with the prebiotic soluble fibers. What is now known regarding a high fiber diet include: Bowel Regularity A high fiber diet promotes regularity with a softer, bulkier and regular stool pattern. This decreases the chance of hemorrhoids, diverticulosis and perhaps colon cancer. Cholesterol and Reduced Triglycerides The soluble fibers are the ones that will reduce cholesterol levels when used on a regular basis. Psyllium husk and prebiotic soluble fiber will also reduce cholesterol. They may also reduce the incidence of coronary heart disease. Oats, flax seeds and legumes or beans are the recommended fibers. Colon Polyps and Cancer It is still not certain if a high fiber diet helps prevent colon cancer. Considerable research suggests that this may occur. Certainly it makes sense to increase regularity and so speed the movement of cancer causing carcinogens through the bowel. In addition, reducing a heavy meat diet reduces the bile flow from the liver in a favorable way. This, too, reduces the amount of carcinogens that reach and are manufactured in the colon. Finally, a high fiber diet, including prebiotic soluble fiber, increases the integrity and health of the wall of the colon. The risk of cancer may be reduced. Colon Wall Integrity A high fiber diet changes the bacterial makeup of the colon toward a more favorable balance. For instance, it is known that those people with obesity, diabetes type 2 and inflammatory bowel disease have a predominance of bad bacteria in the colon. This, in turn, may render the bowel wall weak and allow bacteria and, indeed, even toxins to seep through. A high fiber diet with a modest reduction in animal and meat products may return the bacterial makeup to a more positive balance. This, in particular, has been seen when the soluble fiber prebiotics are added to the diet. Blood Sugar Soluble fiber such as in legumes (beans), oats and in prebiotic fibers slows the absorption of blood sugar and so helps regulate the sugar in the blood. Insoluble fiber on a regular basis is associated with reduced risk of type 2 diabetes. Weight Loss High fiber diets are more filling and give a sense of fullness sooner than an animal and meat based diet does. In addition, the soluble prebiotic fibers have been shown to turn off the hunger hormones produced in the wall of the gut and to increase the hormones that give a sense of fullness. Those hormones are made in the wall of the gut. New medical research has shown that the bacterial makeup in the colon in overweight people is abnormal to the extent that they manufacture and absorb almost twice the number of calories through the colon wall as do normals. Prebiotic fibers (below) will help change this hormonal balancein a favorable way. Bacteria and the Function of the Colon The colon finishes the digestive process. Hopefully, the waste products move through in a nice regular manner. Insoluble fibers help this process by retaining water and so producing a bulkier, softer stool, which is easy to pass. The additional role of the colon is to provide a home for an enormous number of micro-organisms, mostly bacteria. Recent research has shown that there are over 1,000 species of bacteria with a total bacterial count ten times the number of cells in the body. These bacteria play a major role in keeping the colon wall itself healthy. In addition, these good bacteria produce a very strong immune system for the body. They significantly increase calcium absorption and bone density. They provide other documented benefits. It is the soluble fibers in the diet that are so effective in stimulating the growth of good colon bacteria. How Much is Enough? The amount of fiber in food is measured in grams. National nutritional authorities recommend the following amounts of dietary fiber daily. Under Age 50 Over Age 50 Men 38 grams 30 grams Women 25 grams 21 grams For a week or so, it is best to tally the amount of fiber you are consuming. Boxed and packaged foods will have the amount of fiber per serving on the nutrition label. Which Fibers and Which Foods are Best? As noted, healthy fiber is only found in plants. The three major categories are whole grains, fruits and vegetables. Whole Grains Wheat, oats, barley, wild or brown rice, amaranth, buckwheat, bulgur, corn, millet, quinoa, rye, sorghum, teff and triticals. By far, wheat, oats and wild or brown rice are most common. Always buy whole grain products. White bread, baked goods and rolls almost always are made from wheat flour. Wheat flour is white because most of the fiber, vitamins and other nutrients have been removed. Try not buy enriched grains. What this means is that simple white flour has had vitamins added to it by the certified maintenance welder. The word, enriched, implies a good and healthy product. On the contrary, enriched means that most of the fiber has been removed and a few vitamins added. Fruits Fruits come from trees such as apple and pear or from bushes or arsh. You should eat a wide variety of fruits, preferably with every meal. In many cases, the skin of a fruit such as apple will contain much of the insoluble fiber while the pulp contains most of the soluble fiber. To the extent possible, buy organic fruits as these will have little or no pesticides. Always wash fruit. Vegetables Eat a wide variety of vegetables. They should be a mainstay of lunch and dinners. Frozen vegetables retain as much nutrition and fiber as fresh vegetables. As with fruit, try to buy organic to reduce any residual pesticide ingestion. Wash fresh vegetables thoroughly. Cruciferous vegetables such as broccoli, [place] sprouts and cauliflower contain certain chemicals such as sulforaphane. This substance has very strong anti-cancer properties and should be eaten frequently. Legumes, Beans, Peas and Soybeans These vegetables have plenty of soluble fiber and should be part of a varied vegetable intake. Beans, in particular, contain a certain type of fiber that may lead to harmless gas or bloating. Nuts and Seeds These are rich sources of fiber and are a good substitute for sweets such as candies and baked sweet goods. While nuts and seeds are rich in fiber, they also contain vegetable fat and so can and do add calories. Read the Labels As noted, fresh and frozen foods are usually better. They have good nutrition and few, if any, chemicals added to them. When buying packaged foods and, in particular grains, look for three things: ? The first word on the label should be whole, such as whole wheat or whole grain. ? Check out the calories and the amount of fiber in a serving. ? How many and what other additives or chemicals are added. Fewer is always better. Do you know what each additive does? Some are added not for the benefit of the produce buyer but rather for manufacturers. These could and do include sugar, artificial flavor, chemicals to prevent oxidation and spoilage, emulsifiers to blend the product. You have to be a automatic die cutting machine operator. Fiber Facts, Nuggets and Pearls ? For breakfast you can easily get the day started well by using a high fiber, whole grain cereal. Check the labels. Add fruit such as blueberries and bananas. If you are an egg eater, use whole wheat or grain toast. Adding wheat germ gives you a good fiber kick. ? Always use whole grain or wheat with rolls and sandwiches. Does your fast food store not have them? Perhaps you look elsewhere. Eating an occasional black camacho or veggie burger provides variety. ? Snacks should consist of fruit and/or nuts. While nuts are loaded with fiber, they are an energy rich food, meaning they have a lot of calories in a small packet. ? Fruit juices should contain pulp. Clear juices such as clear orange, pear or apple juice contain little fiber and have a lot of fructose. Prune juice is usually high in fiber. ? Homemade soups ? adding fresh or frozen vegetables to a chicken or vegetable stock is a good way to start homemade soup. ? Salads ? adding cooked and then chilled vegetables provide great flavoring to almost any salad. Remember, a patel salad has lots of cooked corn in it. Small slices of apples or oranges and nuts such as chopped walnuts or sliced almonds always adds taste, variety and fiber to almost any salad. ? Fruit ? Try to eat fruit of some type with almost every meal. ? Rethink how you place the various foods on your dinner plate. Reducing the portions of the meat or animal food portion to the side with equal or more portions of vegetables, legumes and fruits portion always allows for more fiber. There was never anything magic about making the meat or animal food portion the main part of the dinner plate. Eating from smaller plates can, over time, trick your mind and assistant terminal manager habit of using a dinner plate. Again, there is nothing magic in an 11, 12, or 13 inch dinner plate. Fiber Supplements There are a variety of fiber supplements available on the food or pharmacy shelves. Psyllium This soluble plant fiber has been used in [place] for over 2,000 years. It is a soluble fiber with mucilage in it. This acts to retain a lot of water and also is fermented by colon bacteria. When 7 grams a day are used, it does lower cholesterol. Metamucil in various forms is psyllium. Methyl Cellulose All the cellulose products come from finely ground wood chips which are then treated in a variety of ways such as boiling in acids. Methyl cellulose is an insoluble fiber which does dissolve in water. It is also an emulsifier, meaning it blends oils and water. Citrucel is methyl cellulose (MC). MC may not be appropriate for Crohn?s disease or ulcerative colitis as several medical studies have shown that certain emulsifiers dissolve the mucous lining of the colon in animals prone to Crohn?s disease. This then allows bacteria to invade the underlying tissue. Inulin Inulin is a soluble prebiotic fiber found in many foods and which are fermented mostly in the left side of the colon. It is available in a supplement as generic inulin and in Fiber Choice. Oligofructose FOS These are also prebiotic fibers. They are fermented very quickly in the right side of the colon. Prebiotin This product is a combination of oligofructose, which feeds the bacteria in the right side of the colon and inulin, which does the same in the left side of the colon. There seems to be a benefit for this particular formula based on medical research. Prebiotic Soluble Fiber These may be the healthiest of all the soluble fibers. They grow in many plants and have had a great deal of research done on them in the last 10-15 years. These fibers are found in asparagus, yams and other root vegetables such as chicory, garlic, onion, leeks and in smaller amounts in wheat. This research has shown the following: ? Increase in good and decrease in bad colon bacteria ? Increase calcium absorption and enhanced bone mass ? Enhanced immune system ? Appetite and weight control by changing the hormone appetite signals to the brain ? May decrease colon cancer incidence ? Reduce or correct a leaky colon Eating a wide variety of plant food up to the recommended amount will likely give you enough prebiotic fiber. Supplements such as Prebiotin can be added to the diet. Short Chain Fatty Acids (SCFA) Some rather remarkable research findings have shown that one of the benefits of ingesting a lot of soluble fiber, in particular the prebiotic ones, results in larger amounts of SCFAs in the colon. These SCFAs are made by the good bacteria in the colon such as Bifidobacter and Lactobacillus. These small molecules have been shown to do the following: ? Enhance the health and integrity of the colon wall ? Provide nourishment for the cells that actually line the colon ? Increases the acidity of the colon which is a very real health benefit ? Stabilize blood sugar for diabetics ? Reduce blood cholesterol and triglyceride ? Significantly enhance immunity ? May be a benefit for Crohn?s disease and ulcerative colitis patients Fiber and Gas Everyone has intestinal gas and that is a good thing. It means that bacteria, hopefully the good ones, are thriving. The normal amount of flatus passed each day depends on sex and what is eaten. The normal number of flatus is 10-20 times a day. When the bacteria that make intestinal gases are growing, it also means that other good bacteria are using the same fibers to grow and produce multiple health benefits, including the production of healthy short-chain fatty acids. These substances are produced quietly in the colon and produce many health-related outcomes. Soluble fiber should always be used in a gradual manner. If too much is consumed at any one time, then excess, but harmless, intestinal gas can occur. People with irritable bowel syndrome are particularly prone to bloating and mild cramping. In this instance, soluble fiber in the diet or supplement should be used in small doses and increased gradually. Finally, prebiotic fibers tend to cause the production of short-chain fatty acids which acidify the colon. This, in turn, reduces or stops the growth of bacteria that make the smelly hydrogen sulfide gases that produce noxious flatus. People who consume many vegetables with prebiotics or take a prebiotic fiber supplement often have non-odoriferous flatus. Fiber and Irritable Bowel Syndrome Irritable bowel syndrome (IBS) is one of the most common disorders of the lower digestive tract. The symptoms of IBS can be quite varied. They can be a mix of several symptoms such as constipation, diarrhea, crampy abdominal discomfort, bloating and gas. An attack of IBS can be triggered by emotional tension and anxiety, poor dietary habits and certain medications. It is now known that infections in the intestine can lead to long-term IBS symptoms. Increased amounts of fiber in the diet can help relieve the symptoms of irritable bowel syndrome by producing soft, bulky stools. This helps to normalize the time it takes for the stool to pass through the colon. Recent medical research with newer techniques has shown some surprising and dramatic findings for IBS patients. Specifically, there is a very significant and abnormal shift of bacteria from those that provide health benefits to those bad bacteria that we really do not want in the gut. The technical name for this bad group of bacteria is called Firmicutes. Along with this abnormal bacterial collection, there is a smoldering low-grade inflammation in the gut wall that may contribute to symptoms. The goal for IBS patients should be to gradually increase the soluble dietary fibers in the diet so as to promote the growth of good bacteria and so suppress the bad ones along with the associated inflammation. IBS patients need to be careful of the amount of soluble fiber they consume. The reason for this is that, while the good colon bacteria thrive on these fibers and produce health benefits, other gas-forming bacteria may generate excessive but harmless gas and subsequent bloating. Thus, soluble plant fibers or a dietary prebiotic supplement should be taken in small initial doses and then gradually increased to tolerance. Fiber and Colon Polyps/Cancer Colon cancer is a major health problem. This disease is most common in Western cultures. It is not seen very often in rural cultures where the diet is mostly plant based. Usually, colon cancer starts out as a colon polyp, a benign mushroom-shaped growth. In time it grows, and in some people it becomes cancerous. Colon cancer is usually always curable if polyps are removed when found or if surgery is performed at an early stage. It is now known that people can inherit the risk of developing colon cancer, but diet is important, too. As noted, there is a very low rate of colon cancer in residents of countries where grains are unprocessed and retain their fiber. It seems that in the [place] world, cancer-containing agents (carcinogens) remain in contact with the colon wall for a longer time and in higher concentrations. So, a large bulky stool may act to dilute these carcinogens by moving them through the bowel more quickly. Less carcinogenic exposure to the colon may mean fewer colon polyps and less cancer. A very current review of the entire world?s literature on the effect of fiber on colon polyps and cancer prevention has shown rather clearly that for every 10 grams of fiber added to the diet, there is a 10% reduction in incidence of colon cancer. So the recommended 30 gram fiber diet would result in a 30% less chance of getting these tumors. There are also substances produced in the colon by the good bacteria that seem to retard certain pre-cancer factors from developing. They are called short-chain fatty acids (SCFA). See above for description of SCFAs. A high fiber diet increases these substances. So, the combination of dietary fiber and the production of short-chain fatty acids have a clear health benefit. Fiber and Diverticulosis Prolonged, vigorous contraction of the colon over a long period of time may result in diverticulosis. This increased pressure causes small and, eventually, larger ballooning pockets to form. These pockets by themselves cause no problem. However, sometimes they become infected (diverticulitis) or even break open (perforate) causing infection or inflammation within the abdomen (peritonitis). A high fiber diet increases the bulk in the stool and thereby reduces the pressure within the colon. By so doing, the formation of pockets may be reduced or possibly even stopped. In the past, many physicians were fearful that seeds as in tomatoes, nuts or berries were harmful and could get inside these pockets and rattle around, causing damage. We now know that this has never been the case and that these foods contain lots of fiber and are actually beneficial for diverticulosis patients. Certain bulking agents such as psyllium are traditional types of bulk producing supplements. Psyllium is a soluble fiber. Combining it with insoluble fiber as in wheat bran or corn bran (no gluten) can enhance this bulking effect even more. A product containing a prebiotic, psyllium and wheat bran is probably a very good combination for bowel regularity. Prebiotin Regularity/Diverticulosis is one such product. Activity:: No lifting over 20 pounds or strenuous activity x24 hours Diet:: Small light meals x24 hours Discharge Orders Discharge Orders: Discharge Order (Routine); Ordered 03/11/20 Ordered By: Mariana Figueroa DS: Diagnosis Discharge Diagnosis (1) Adenomatous polyp of sigmoid colon: Status: Acute (2) Diverticular disease of large intestine: Status: Acute
[2020-03-11 11:36] VITALS: BP 120/81; PULSE 65; RESP 16; TEMP 36.5; O2SAT 94
--- NOTE | 2020-03-12 11:50 | W.COLOREPORT ---
Date of service: 03/11/20 Time of Service: 11:50 Colonoscopy Report Date of procedure: 03/12/20 Pre-op diagnosis general: villous adenoma /severe diverticular dx Post-op diagnosis procedure note: same Procedure: CE Surgeon: Mariana Figueroa Anesthesia proc note operative: GETA Estimated blood loss (mL): 0 Pathology: none sent Disposition: same day Prep: Miralax/Dulcolax Retraction Time: 10mins Procedure Description: After informed consent was obtained the patient was taken to the procedure room and placed in a left decubitous position. Monitors were applied and a time out was done. The patients name, date of , procedure, allergies to medications and metal in their body was reviewed. The patient was then sedated. Once sedated and comfortable a rectal exam was done. External exam was normal. Internal exam revealed a normal sphincter tone and no palpable masses. The prostate nl. The scope was then introduced and retrofelexed. NO internal hemorrhoids were identified. The scope was then advanced to the cecum w/out difficulty. The TI and appendiceal orifice were identified. The prep was good. The scope was then slowly retracted over 10 minutes back into the rectum. He does have severe diverticular disease that does carry all the way over to the transverse colon. There is no signs of active bleeding or infection. He had a previous villous at 30 cm. There is no sign of any recurrent polyps today. The scope was removed and the patient was woken up and taken back to Same day surgery in stable condition. The patient tolerated the procedure well and there were no immediate complications. Follow up: The patient should follow up in 1-2 years unless they develop changes in bowel habits or other new gastrointestinal complaints.
== END 2020-03-11 12:10 | disposition home or self-care (01) ==
PROVIDERS: PCP Internal Medicine; Visit Provider Surgery
PROC: 0DJD8ZZ Inspection of Lower Intestinal Tract, Via Natural or Artificial Opening Endoscopic (ICD-10-PCS; CPT 45378; principal; 2020-03-11 09:00)
DX: Z09 Encounter for follow-up examination after completed treatment for conditions other than malignant neoplasm; Z86.010 Personal history of colon polyps; K57.30 Diverticulosis of large intestine without perforation or abscess without bleeding
CPT/HCPCS: 45378

== ENCOUNTER 2020-03-23 14:39 | Outpatient (REF) | payer MEDICARE, SELFPAY ==
[2020-03-27 03:52] LABS: Patient Race White; SARS-CoV-2 RNA Undetected (Undetected); SARS-CoV-2 Specimen Source Nasal
== END 2020-03-23 14:59 ==
LOC: NCHCN 14:39
PROVIDERS: PCP Internal Medicine; Visit Provider Internal Medicine
DX: Z20.828 Contact with and (suspected) exposure to other viral communicable diseases (principal)
CPT/HCPCS: U0003

== ENCOUNTER → 2020-04-05 09:12 | Outpatient (BNVA) | payer MEDICARE, SELFPAY | PROVIDERS: PCP Internal Medicine; Referring Provider Internal Medicine; Visit Provider Nurse Practitioner Gerontology | DX: N40.1 Benign prostatic hyperplasia with lower urinary tract symptoms (principal); N13.8 Other obstructive and reflux uropathy; Z80.42 Family history of malignant neoplasm of prostate; I10 Essential (primary) hypertension | CPT/HCPCS: 99205; 99215 ==

== ENCOUNTER 2020-04-05 10:46 | Outpatient (REF) | payer MEDICARE, SELFPAY | END 2020-04-05 11:06 | LOC: LBN 10:46 | PROVIDERS: PCP Internal Medicine; Visit Provider Nurse Practitioner Gerontology | DX: N40.1 Benign prostatic hyperplasia with lower urinary tract symptoms (principal); N13.8 Other obstructive and reflux uropathy | CPT/HCPCS: 84154 ==

== ENCOUNTER → 2020-04-20 08:25 | Outpatient (BNVA) | payer MEDICARE, SELFPAY | PROVIDERS: PCP Internal Medicine; Referring Provider Internal Medicine; Visit Provider Nurse Practitioner Gerontology | DX: N40.1 Benign prostatic hyperplasia with lower urinary tract symptoms (principal); N13.8 Other obstructive and reflux uropathy; Z80.42 Family history of malignant neoplasm of prostate | CPT/HCPCS: 99213; 99442 ==

== ENCOUNTER 2020-08-19 16:46 | Outpatient (REF) | payer MEDICARE, SELFPAY ==
[2020-08-19 13:46] LABS: Anion Gap 10.6 mmol/L (3-11); BUN 24 mg/dL (7-18); CO2 25.4 mmol/L (21.0-32.0); Calcium 8.8 mg/dL (8.5-10.1); Chloride 105 mmol/L (98-107); Glucose 102 mg/dL (74-106); Potassium 4.3 mmol/L (3.5-5.1); Sodium 141 mmol/L (136-145)
== END 2020-08-19 16:47 | disposition home or self-care (01) ==
LOC: NCHCN 16:46
PROVIDERS: PCP Internal Medicine; Visit Provider Internal Medicine
DX: I10 Essential (primary) hypertension (principal)
CPT/HCPCS: 80048

== ENCOUNTER 2021-03-04 20:32 | Outpatient (REF) | payer MEDICARE, SELFPAY ==
[2021-03-04 20:34] LABS: Abs Immature Grans 0.02 10^3/uL (0.0-0.06); Absolute Basophil Count 0.01 10^3/uL (0.0-0.2); Absolute Lymphocyte Count 0.49 10^3/uL (1.2-3.4); Absolute Monocyte Count 0.39 10^3/uL (0.1-0.8); Absolute Neutrophil Count 2.92 10^3/uL (1.2-6.7); Basophils % 0.3; HGB 14.7 g/dL (13.5-17.5); Immature Grans % 0.5; Lymphocytes % 12.8; MCH 31.4 pg (27.0-33.0); MCHC 32.7 % (32.0-36.0); MCV 96.2 fL (80-95); MPV 11.7 fL (8.0-11.0); Monocytes % 10.2; Neutrophils % 76.2; Nucleated RBC 0 %; Platelet Count 141 10^3/uL (130-400); RBC 4.68 10^6/uL (4.36-5.78); RDW 13.6 % (11.8-14.1); WBC 3.83 10^3/uL (4.4-10.8)
[2021-03-04 20:42] LABS: ALT 62 U/L (16-63); AST 53 U/L (15-37); Albumin 3.7 g/dL (3.4-5.0); Alkaline Phosphatase 77 U/L (46-116); Anion Gap 9.6 mmol/L (3-11); BUN 24 mg/dL (7-18); Bilirubin, Total 0.5 mg/dL (0.2-1.0); CO2 27.4 mmol/L (21.0-32.0); CREATININE 1.2 mg/dL (0.70-1.30); Chloride 102 mmol/L (98-107); Glucose 94 mg/dL (74-106); Potassium 4.3 mmol/L (3.5-5.1); Sodium 139 mmol/L (136-145); Total Protein 7.4 g/dL (6.4-8.2)
[2021-03-06 10:27] LABS: COVID-19 RT-PCR UVMMC Result Negative (Negative)
[2021-03-07 11:08] LABS: Lyme Ab w Rflx to Lyme Confirm Negative (Negative)
[2021-03-08 21:55] LABS: B. miyamotoi PCR Negative (Negative); Babesia divergens/MO-1 Negative (Negative); Babesia duncani Negative (Negative); Babesia microti Negative (Negative); Ehrlichia chaffeensis Negative (Negative); Ehrlichia ewingii/canis Negative (Negative); Ehrlichia muris eauclairensis Negative (Negative)
[2021-03-09 10:27] LABS: Anaplasma phagocytophilum Positive (Negative)
== END 2021-03-04 20:33 | disposition home or self-care (01) ==
LOC: NCHCN 20:32
PROVIDERS: PCP Internal Medicine; Visit Provider Family Medicine
DX: R50.9 Fever, unspecified (principal); Z20.822 Contact with and (suspected) exposure to COVID-19
CPT/HCPCS: 80053; 87798; U0003; U0005; 85025; 86618

== ENCOUNTER → 2022-03-20 11:32 | Outpatient (BNVA) | payer MEDICARE, SELFPAY | PROVIDERS: PCP Internal Medicine; Referring Provider Internal Medicine; Visit Provider Surgery | DX: Z12.11 Encounter for screening for malignant neoplasm of colon (principal); D12.5 Benign neoplasm of sigmoid colon | CPT/HCPCS: 99212 ==

== ENCOUNTER 2022-03-28 20:12 | Outpatient (REF) | payer MEDICARE, SELFPAY ==
[2022-03-28 15:22] LABS: Anion Gap 10.7 mmol/L (3-11); BUN 21 mg/dL (7-18); CO2 24.3 mmol/L (21.0-32.0); Calcium 9.4 mg/dL (8.5-10.1); Chloride 102 mmol/L (98-107); Estimated GFR 82.49 (mL/min/1.73m2); Glucose 95 mg/dL (74-106); Potassium 4.6 mmol/L (3.5-5.1); Sodium 137 mmol/L (136-145)
[2022-03-29 10:40] LABS: PSA, Screening 0.7 ng/mL (<=4.5)
== END 2022-03-28 20:13 | disposition home or self-care (01) ==
LOC: NCHCN 20:12
PROVIDERS: PCP Internal Medicine; Visit Provider Family Medicine
DX: N40.1 Benign prostatic hyperplasia with lower urinary tract symptoms (principal); Z12.5 Encounter for screening for malignant neoplasm of prostate; I10 Essential (primary) hypertension
CPT/HCPCS: 80048; 84153

== ENCOUNTER 2022-04-04 07:05 | Day surgery (SDC) | payer MEDICARE, SELFPAY ==
--- NOTE | 2022-04-03 20:28 | PDOC.DSDIS_ITS ---
Date of service: 04/04/22 Time of Service: 09:31 Discharge Plan Disposition Patient Disposition: HOME Condition: Good Discharge Details Reason For Visit: Routine health maintenance screening colonoscopy Attending Provider: Red Alexander Primary Care Provider: Arturo Stanton Home Meds and New Rx's Prescriptions: Continued losartan 25 mg tablet 25 mg PO DAILY fluticasone propionate 50 mcg/actuation spray,suspension 2 spray CHERYLE DAILY budesonide-formoterol [Symbicort] 10.2 GM HFA aerosol inhaler 1 puff Inhalation BID albuterol sulfate [ProAir HFA] 200 PUFF HFA aerosol inhaler 2 puff Inhalation PRN PRN ibuprofen 400 mg Tablet 400 mg PO Q6H Discontinued polyethylene glycol 3350 17 gram/dose powder 238 g PO ONCE Qty: 238 0RF Rx Instructions: take per colonoscopy instructions bisacodyl [Dulcolax (bisacodyl)] 5 mg tablet,delayed release (DR/EC) 5 mg PO ONCE Qty: 4 0RF Rx Instructions: take per colonoscopy instructions Discharge Instructions Instructions: Diverticulosis (GEN) Additional Instructions: 1. If tolerated, consume a soft, low fiber diet for 1-2 days. 2[address] Do not drive, drink alcohol, operate machinery, make critical decisions, or do activities that require coordination or balance for 24 hours. 3. Because air was put into your colon during the procedure, expelling air from your rectum (passing gas or farting) is normal. 4. You may not have a bowel movement for 1-3 days because of the colonoscopy p rep. This is normal. 5. Go directly to the emergency room if you notice any of the following: Develop chills (warm to touch), or if you have a thermometer and your temperature is above 101 Difficulty breathing or difficultly swallowing Persistent vomiting Severe abdominal pain, other than gas cramps Severe chest pain Black, tarry stools Any bleeding ? exceeding one tablespoon 6. Call your physician if the site where your intravenous was started becomes red, swollen, painful, and warm to touch. 7. Your physician has reviewed your pre-procedure medications. Please continue to take those medications as previously ordered. You will be given specific information/education regarding any changes to your medications before leaving. Activity:: Activity as Tolerated Activity:: Activity as Tolerated DS: Diagnosis Discharge Diagnosis (1) Diverticular disease of large intestine: Status: Acute Asessment and Plan: No evidence of any polyps on this follow-up screening colonoscopy. Based on your history, and the results of this test, I recommend another screening colonoscopy at 5 years
--- NOTE | 2022-04-03 20:30 | W.COLOREPORT ---
Date of service: 04/04/22 Time of Service: 09:35 Colonoscopy Report Date of procedure: 04/04/22 Pre-op diagnosis general: Routine health maintenance screening colonoscopy Post-op diagnosis procedure note: same Procedure: Screening colonoscopy Surgeon: Red Alexander Anesthesia Type: General:No Airway Estimated blood loss (mL): 0 Pathology: none sent Complications: None Disposition: same day Indications: Jan is 67 years old, and has a history of tubulovillous adenomas. During his last colonoscopy, a large polyp was removed, but the specimen was lost. Therefore, he was recommended to have another follow-up screening colonoscopy at this time. Prep: Miralax/Dulcolax Procedure Start Time: 08:43 Procedure End Time: 09:13 Retraction Time: 20 Findings: Extensive sigmoid diverticulosis Procedure Description: After the induction of monitored anesthetic care, and with the patient in left lateral decubitus position, I began by performing an external anorectal exam.? Perineum and skin were normal, as was the anal verge.? There was mild evidence of external hemorrhoids.? Next, I performed a digital rectal exam.? I did not appreciate any abnormal findings.? Next, I advanced a colonoscope into the rectal vault.? I performed retroflexion.? There were internal hemorrhoids.? Using insufflation, I then advanced the colonoscope beyond the rectal folds and into the sigmoid colon before advancing towards the cecum.? The quality of the prep was adequate.? There was extensive sigmoid diverticulosis, and scattered diverticuli throughout the remainder of the large intestine. The scope was noted to be in the cecum by identification of the ileocecal valve and appendiceal orifice.? I then began withdrawing the colonoscope using repeated irrigation as necessary for full evaluation of the colonic mucosa. ?Once the scope was withdrawn to the level of the rectum, great care was taken to examine portions of the rectal folds.? Finally, the scope was withdrawn and the patient was brought to the same-day surgery recovery unit as the anesthetic wore off. ?The findings and instructions were shared with the patient prior to discharge.
[2022-04-04 07:32] VITALS: BP 126/87; PULSE 70; RESP 16; TEMP 36.7; O2SAT 96
[2022-04-04] MEDS: Lactated Ringers 1,000 ML 80 ML IV (07:51)
--- NOTE | 2022-04-04 08:06 | W.ANESPRE ---
General Info Date of Service Date Performed: 04/04/22 Height: 6 ft 0.5 in Weight: 91.7 kg Body Mass Index (BMI): 27.0 Surgical Procedure: Operation Date: 04/04/22 08:20 Proposed Procedure Side Surgeon arron Alexander MD Meds Allergies and Home Medications Allergies Allergy/AdvReac Type Severity Reaction Status Date / Time naproxen [From Naprosyn] Allergy Severe Anaphylaxis Verified 03/20/22 11:52 atorvastatin AdvReac Severe muscle Verified 03/20/22 11:51 break down, affects liver and brain diltiazem AdvReac Severe Low energy Verified 04/05/20 09:15 Home Medication Medication Instructions Recorded albuterol sulfate 90 mcg/actuation 2 puff inhalation PRN PRN 05/25/14 aerosol inhaler (ProAir HFA) budesonide-formoterol HFA 160 1 puff inhalation BID 05/25/14 mcg-4.5 mcg/actuation aerosol inhaler (Symbicort) fluticasone propionate 50 2 spray intranasal DAILY 07/15/19 mcg/actuation nasal spray,suspension losartan 25 mg tablet 25 mg PO DAILY 07/15/19 ibuprofen 400 mg tablet 400 mg PO Q6H 04/03/22 Current Visit Medications: Current Medications Generic Name Dose Route Start Last Admin Trade Name Freq PRN Reason Stop Dose Admin Hyoscyamine Sulfate 0.125 mg 04/03/22 20:30 Hyoscyamine 0.125 Mg Sl/Oral/Chew SL DIRECTED PRN Ringer's Solution 1,000 mls @ 80 mls/hr 04/04/22 06:00 04/04/22 07:51 IV 04/04/22 23:59 80 mls/hr INFUSION BREE Administration IV Miscellaneous Supplies 1 each 04/04/22 06:00 Iv Access IV 04/04/22 23:59 DIRECTED BREE Ondansetron HCl 4 mg 04/03/22 20:30 Ondansetron 4 Mg/2 Ml Vial IVP Q4H PRN PRN Nausea / Vomiting Sodium Chloride 0 ml 04/04/22 06:00 Normal Saline Flush 10 Ml Syr IV 04/04/22 23:59 PRN PRN Sodium Chloride 0 ml 04/04/22 06:00 Normal Saline 10 Ml Vial IJ 04/04/22 23:59 DIRECTED PRN Sterile Water 0 ml 04/04/22 06:00 Water,Injection,Sterile 10 Ml Vial IJ 04/04/22 23:59 DIRECTED PRN PFSH Active Problems Active Problems: Problem Status Onset Code Essential tremor G25.0 Family history of prostate cancer Z80.42 BPH with obstruction/lower urinary tract symptoms N40.1, N13.8 Calcium kidney stones Right flank pain R10.9 Chronic GERD K21.9 Adenomatous polyp of sigmoid colon D12.5 Diverticular disease of large intestine K57.30 History of hemorrhoids Z87.19 Medical History Medical History Adenomatous polyp of sigmoid colon Asthma BPH with obstruction/lower urinary tract symptoms Calcium kidney stones Chronic GERD Diverticular disease of large intestine History of hemorrhoids with banding 2008 Hyperlipidemia Hypertension Leukocytosis Osteoarthritis of carpometacarpal (CMC) joint of right thumb Personal history of anaphylaxis Positive occult stool blood test (~06/2019) Right flank pain Skin lesion Sleep disorder Tremor Surgical History Surgical History History of colonoscopy (~10/02/19) History of colonoscopy (~03/2020) severe diverticula repeat 2 years History of hernia repair History of tibial fracture Tibial plateau fracture with hardware - left side Rupture of quadriceps tendon Quadriceps tendon repair on right leg Tobacco Smoking/Tobacco Use Status: Former Tobacco Use Alcohol Alcohol Intake: current Alcohol intake frequency: 0-2 drinks per day Alcohol type: beer Substance Use Substance use: Never Vital Signs and Lab Results Vital Signs Most Recent Vital Signs in EMR: Most Recent Vital Signs Temp Pulse Resp BP Pulse Ox 36.7 C 70 16 126/87 96 04/04/22 07:32 04/04/22 07:32 04/04/22 07:32 04/04/22 07:32 04/04/22 07:32 Lab Results Blood Type / Crossmatch: No Data to Display Complete Blood Count: No Data to Display Complete Metabolic Panel: Sodium 137 mmol/L (136-145) 03/28/22 10:30 Potassium 4.6 mmol/L (3.5-5.1) 03/28/22 10:30 Chloride 102 mmol/L (98-107) 03/28/22 10:30 Carbon Dioxide 24.3 mmol/L (21.0-32.0) 03/28/22 10:30 BUN 21 mg/dL (7-18) H 03/28/22 10:30 Creatinine 1.0 mg/dL (0.70-1.30) 03/28/22 10:30 Est GFR (CKD-EPI 2020) 82.49 (mL/min/1.73m2) 03/28/22 10:30 Calcium 9.4 mg/dL (8.5-10.1) 03/28/22 10:30 Glucose 95 mg/dL (74-106) 03/28/22 10:30 Liver Function Panel: No Data to Display Coagulation Panel: No Data to Display Cardiac Panel: No Data to Display Arterial Blood Gas: No Data to Display Venous Blood Gas: No Data to Display Pancreas Panel: No Data to Display Thyroid Panel: No Data to Display Infectious Disease: No Data to Display Blood Cultures: No Data to Display Toxicology Panel: No Data to Display Anesthesia Assessment and Plan Anesthesia History Personal History: No History of Anesthesia Complications Family History: No Family History of Anesthesia Complications Exercise Tolerance Exercise Tolerance: Metabolic Equivalents>4 Pertinent Negatives Pertinent Negatives: No Symptoms of GERD and No Major Cardiovascular Symptoms or Complaints Cardiac & Pulmonary Exam Cardiac Exam: Normal S1/S2 Heart Sounds Pulmonary Exam: Clear Bilateral Breath Sounds Implantable Cardiac Device Does patient have a Pacemaker or an ICD?: No Airway Exam Known Difficult Airway: No Mallampati Class: 1 Mouth Opening: Normal (> 3cm) Thyromental Distance: Greater than 3 cm Neck Range of Motion: Full ROM Neck Circumference: Normal Teeth Condition: Normal Dentition ASA Classification ASA Score: ASA 2 Emergency Case?: No NPO Status NPO Status: NPO Clears >2 hours, Solids >8 hours Anesthesia Plan Resuscitation Status: Full Code Anesthesia Technique: General Anesthesia Airway Planned: Natural Airway Monitors Used: Standard Monitors
[2022-04-04 08:09] VITALS: BMI 27.0
[2022-04-04 09:20] VITALS: BP 100/71; PULSE 49; RESP 18; TEMP 36.3; O2SAT 94
--- NOTE | 2022-04-04 09:26 | W.ANESPOSTOP ---
Postoperative Evaluation Date, Time and Location Date Performed: 04/04/22 Time Performed: 09:26 Patient Location: Day Surgery Unit Vital Signs Most Recent Imported Vital Signs: Most Recent Vital Signs Temp Pulse Resp BP Pulse Ox 36.3 C L 49 L 18 100/71 94 04/04/22 09:20 04/04/22 09:20 04/04/22 09:20 04/04/22 09:20 04/04/22 09:20 Pain Score Most Recent Pain Score: Most Recent Pain Score Pain Level 2 04/04/22 09:20 Assessment Mental Status: Awake (Alert & Oriented to Patient Baseline) Airway and Respiratory Function: Patent airway with normal (patient baseline) respiratory exam Cardiovascular Function: Hemodynamically Stable Hydration Status: Adequately Hydrated Nausea & Vomiting: No Nausea or Vomiting Pain: Pain is tolerable per patient Peripheral Nerve Block: Patient did not receive a nerve block
[2022-04-04] MEDS: Hyoscyamine 0.125 MG SL/ORAL/CHEW SL (09:31)
[2022-04-04 09:45] VITALS: BP 141/90; PULSE 62; RESP 18; TEMP 36.6; O2SAT 96
== END 2022-04-04 10:39 | disposition home or self-care (01) ==
PROVIDERS: PCP Family Medicine; Visit Provider Surgery
PROC: 0DJD8ZZ Inspection of Lower Intestinal Tract, Via Natural or Artificial Opening Endoscopic (ICD-10-PCS; CPT 45378; principal; 2022-04-04 08:15)
DX: Z12.11 Encounter for screening for malignant neoplasm of colon (principal); K57.30 Diverticulosis of large intestine without perforation or abscess without bleeding; K64.8 Other hemorrhoids; Z86.010 Personal history of colon polyps; G25.0 Essential tremor; I10 Essential (primary) hypertension
CPT/HCPCS: G0105; J3490

== ENCOUNTER 2022-04-11 13:54 | Outpatient (REF) | payer MEDICARE, SELFPAY ==
[2022-04-17 15:06] LABS: Helicobacter pylori Ag, Feces Negative (Negative)
== END 2022-04-11 13:55 | disposition home or self-care (01) ==
LOC: NCHCN 13:54
PROVIDERS: PCP Family Medicine; Visit Provider Family Medicine
DX: I10 Essential (primary) hypertension (principal); N40.1 Benign prostatic hyperplasia with lower urinary tract symptoms; R19.7 Diarrhea, unspecified; J45.40 Moderate persistent asthma, uncomplicated; F52.21 Male erectile disorder; Z00.00 Encounter for general adult medical examination without abnormal findings
CPT/HCPCS: 87329; 87338; 87177

== ENCOUNTER 2022-04-19 14:14 | Outpatient (REF) | payer MEDICARE, SELFPAY ==
[2022-04-20 12:44] LABS: IgA 266 mg/dL (85-499); Interpretation (See Note); Tissue Transglutaminase IgA <1.2 U/mL (<4.0)
== END 2022-04-19 14:15 | disposition home or self-care (01) ==
LOC: NCHCN 14:14
PROVIDERS: PCP Family Medicine; Visit Provider Family Medicine
DX: R19.7 Diarrhea, unspecified (principal)
CPT/HCPCS: 82784; 83516

== ENCOUNTER 2022-06-16 14:17 | Outpatient (REF) | payer MEDICARE, SELFPAY ==
[2022-06-19 21:52] LABS: Adenovirus F40/41 Negative (Negative); Astrovirus Negative (Negative); C. difficile toxin Negative (Negative); Cryptosporidium species Negative (Negative); Cyclospora cayetanensis Negative (Negative); Entamoeba histolytica Negative (Negative); Enteroaggregative E.coli(EAEC) Negative (Negative); Enteropathogenic E.coli (EPEC) Negative (Negative); Enterotoxigenic E.coli (ETEC) Negative (Negative); Norovirus GI/GII Negative (Negative); Plesiomonas shigelloides Negative (Negative); Salmonella species Negative (Negative); Sapovirus Negative (Negative); Shiga toxin producing E.coli Negative (Negative); Shigella/Enteroinvasive E.coli Negative (Negative); Specimen Source STOOL; Vibrio cholerae Negative (Negative); Yersinia species Negative (Negative)
[2022-06-21 15:43] LABS: Calprotectin <50.0 mcg/g
== END 2022-06-16 14:18 | disposition home or self-care (01) ==
LOC: LBN 14:17
PROVIDERS: PCP Family Medicine; Visit Provider Nurse Practitioner Adult Health
DX: R19.7 Diarrhea, unspecified (principal)
CPT/HCPCS: 87507; 83993

== ENCOUNTER 2022-07-27 16:37 | Outpatient (CLI) | payer MEDICARE, SELFPAY ==
--- NOTE | 2022-07-27 | DI.RAD_ITS ---
Exam(s) XR CLAVICLE RT XR SHOULDER RT COMPLETE 2+V EXAM: XR CLAVICLE RT and XR shoulder RT complete two view CLINICAL HISTORY: RT SHOULDER PAIN, M25.511, S/P COLLISION WITH TREE WHILE SKIING ON 07/26/22 TECHNIQUE: 2D digital imaging was performed of the right shoulder and clavicle. Seven images were o btained. Multiple views were obtained. COMPARISON: CR XR SHOULDER RT COMPLETE 2+V from 07/27/2022 FINDINGS: BONES: No acute fracture is present. No bony destructive lesion is seen. JOINTS: No dislocation present. There are degenerative changes seen at the acromioclavicular and sloan ohumeral joints. SOFT TISSUE: Normal IMPRESSION: No acute fracture or dislocation. DATA REPOSITORY: RADIATION DOSE DELIVERED:
== END 2022-07-27 16:57 ==
LOC: DI 16:38
PROVIDERS: PCP Family Medicine; Visit Provider Physician Assistant Medical
DX: M25.511 Pain in right shoulder (principal); M25.811 Other specified joint disorders, right shoulder
CPT/HCPCS: 73000; 73030

== ENCOUNTER 2023-03-28 10:14 | Outpatient (REF) | payer MEDICARE, SELFPAY ==
[2023-03-28 14:45] LABS: Hemoglobin A1C 5.9 % (<5.7)
[2023-03-28 14:52] LABS: Anion Gap 3.7 mmol/L (3-11); BUN 18 mg/dL (7-18); CO2 27.3 mmol/L (21.0-32.0); Calcium 9.7 mg/dL (8.5-10.1); Chloride 105 mmol/L (98-107); Estimated GFR 81.98 (mL/min/1.73m2); Glucose 111 mg/dL (74-106); Potassium 4.3 mmol/L (3.5-5.1); Sodium 136 mmol/L (136-145)
== END 2023-03-28 10:15 | disposition home or self-care (01) ==
LOC: NCHCN 10:14
PROVIDERS: PCP Family Medicine; Visit Provider Family Medicine
DX: I10 Essential (primary) hypertension (principal); Z00.00 Encounter for general adult medical examination without abnormal findings
CPT/HCPCS: 80048; 83036

== ENCOUNTER 2023-11-20 12:01 | Emergency (ER) | payer MEDICARE, SELFPAY ==
[2023-11-20 12:04] VITALS: BP 139/86; PULSE 65; RESP 16; TEMP 36.9; O2SAT 99
--- NOTE | 2023-11-20 12:15 | DI.RAD_ITS ---
Exam(s) XR RIBS LT PA CHEST 3V EXAM: XR RIBS LT PA CHEST 3V CLINICAL HISTORY: left rib pain. TECHNIQUE: 2D digital imaging was performed. COMPARISON: No exams were available for comparison FINDINGS: Six views Are acute appearing minimally displaced fractures of the left 7th and 8th rib, laterally. No pneumot horax evident. Platelike atelectasis noted in the lung bases bilaterally. Small amount of left pleu ral fluid. No large pleural effusion. No pneumothorax. No osseous lesions. Chest x-ray: Heart size normal and the mediastinum is not widened or shifted. There is platelike ate lectasis lung bases. No lung contusions. No pneumothorax IMPRESSION: Minimally displaced fractures of the left 7th and 8th ribs. No pneumothorax DATA REPOSITORY: RADIATION DOSE DELIVERED:
[2023-11-20] MEDS: Lidocaine 5% Patch 1 PATCH TP (13:10)
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
== END 2023-11-20 13:11 | disposition home or self-care (01) ==
PROVIDERS: Emergency Provider Emergency Medicine; PCP Family Medicine
DX: S22.42XA Multiple fractures of ribs, left side, initial encounter for closed fracture (principal); V18.0XXA Pedal cycle driver injured in noncollision transport accident in nontraffic accident, initial encounter
CPT/HCPCS: 71101; 99283

== ENCOUNTER 2024-05-19 15:29 | Outpatient (REF) | payer MEDICARE, SELFPAY ==
[2024-05-19 16:17] LABS: ALT 25 U/L (16-63); AST 23 U/L (15-37); Albumin 3.6 g/dL (3.4-5.0); Alkaline Phosphatase 85 U/L (46-116); Anion Gap 8.5 mmol/L (3-11); BUN 29 mg/dL (7-18); Bilirubin, Total 0.38 mg/dL (0.2-1.0); CO2 27.5 mmol/L (21.0-32.0); CREATININE 1.2 mg/dL (0.70-1.30); Calcium 9.3 mg/dL (8.5-10.1); Calculated LDL 240 mg/dL (<100); Chloride 108 mmol/L (98-107); Cholesterol 311 mg/dL (<200); Estimated GFR 65.06 (mL/min/1.73m2); Glucose 106 mg/dL (74-106); HDL Cholesterol 51 mg/dL (40-60); Potassium 4.6 mmol/L (3.5-5.1); Sodium 144 mmol/L (136-145); Total Protein 6.8 g/dL (6.4-8.2); Triglyceride 100 mg/dL (<150)
== END 2024-05-19 15:30 | disposition home or self-care (01) ==
LOC: NCHCN 15:29
PROVIDERS: PCP Family Medicine; Visit Provider Family Medicine
DX: E78.5 Hyperlipidemia, unspecified (principal)
CPT/HCPCS: 80053; 80061

== ENCOUNTER 2024-06-04 02:31 | Outpatient (CLI) | payer MEDICARE, SELFPAY ==
--- NOTE | 2024-06-04 | DI.RAD_ITS ---
Exam(s) XR HIP PELVIS ADULT BL EXAM: XR HIP PELVIS ADULT BL CLINICAL HISTORY: M19.91 Primary osteoarthritis, unspecified site, Idiopathic osteoarthritis. TECHNIQUE: 2D digital imaging was performed of the pelvis and bilateral hips. Five images were obta ined. AP pelvis and lateral views of both hips were obtained. COMPARISON: No exams were available for comparison FINDINGS: BONES: No acute fracture is present. No bony destructive lesion is seen. JOINTS: No dislocation present. In the right hip there is marked narrowing of the superior joint spac e. In the left hip there is mild narrowing of the superior joint space. There also mild protuberanc e is at the head neck junction of both femora which may reflect femoral acetabular impingement. The findings are most prominent on the right. SOFT TISSUE: Vascular calcifications are present. IMPRESSION: Degenerative changes of the hips as described above. The findings are most marked on the right. DATA REPOSITORY: RADIATION DOSE DELIVERED:
== END 2024-06-04 02:51 ==
LOC: DI 02:31
PROVIDERS: PCP Family Medicine; Visit Provider Family Medicine
DX: M16.0 Bilateral primary osteoarthritis of hip (principal)
CPT/HCPCS: 73521

== ENCOUNTER 2024-08-26 10:20 | Outpatient (CLI) | payer MEDICARE, SELFPAY ==
--- NOTE | 2024-08-26 10:44 | DI.RAD_ITS ---
Exam(s) XR SHOULDER LT COMPLETE 2+V EXAM: XR SHOULDER LT COMPLETE 2+V CLINICAL HISTORY: evaluate left shoulder. TECHNIQUE: 2D digital imaging was performed of the left shoulder. Two images were obtained. Grashe y and axillary views were obtained. COMPARISON: CR XR RIBS LT PA CHEST 3V from 11/20/2023 FINDINGS: BONES: No acute fracture is present. No bony destructive lesion is seen. JOINTS: No dislocation present. The glenohumeral joint appears well maintained with only minimal narr owing. The acromioclavicular joint is unremarkable. SOFT TISSUE: Normal. IMPRESSION: Minimal degenerative changes seen in the left shoulder. DATA REPOSITORY: RADIATION DOSE DELIVERED:
== END 2024-08-26 10:21 | disposition home or self-care (01) ==
LOC: DIORS 10:20
PROVIDERS: PCP Family Medicine; Referring Provider Family Medicine; Visit Provider Student in an Organized Health Care Education/Training Program
DX: M75.102 Unspecified rotator cuff tear or rupture of left shoulder, not specified as traumatic
CPT/HCPCS: 99213; 73030

== ENCOUNTER 2024-09-17 01:50 | Outpatient (CLI) | payer MEDICARE, SELFPAY ==
--- NOTE | 2024-09-17 06:30 | DI.MRI_ITS ---
Exam(s) MR UPPER JOINT LT WO EXAM: MR UPPER JOINT LT WO CLINICAL HISTORY: L SHOULDER PAIN,lt rotator cuff tear,m75.102. TECHNIQUE: Multiplanar multisequence MRI was performed. COMPARISON: CR XR SHOULDER LT COMPLETE 2+V from 08/26/2024 FINDINGS: BONES: There is no fracture or contusion pattern. JOINTS: Degenerative changes are seen at the acromioclavicular joint. There also mild degenerative c hanges seen at the glenohumeral joint. The humeral head appears slightly superiorly subluxed relativ e to the glenoid. TENDONS: Supraspinatus: There is a full-thickness tear of the supraspinatus tendon with retraction to the leve l of the acromion. Infraspinatus: There is tendinosis of the infraspinatus tendon. Subscapularis: Unremarkable. Teres Minor: Unremarkable. Biceps and [place]: Unremarkable. MUSCLES: The muscles are within normal limits for signal and size. GLENOID LABRUM: Unremarkable on this noncontrast examination. SOFT TISSUES: There is a small sebaceous cyst in the subcutaneous tissues anterior to the distal clav icle. It measures 8 mm. LIGAMENTS: Unremarkable. OTHER: There is fluid seen in the subacromial subdeltoid bursa consistent with the patient's full-thi ckness tear. IMPRESSION: 1. Full-thickness tear of the supraspinatus tendon with retraction to the level of the acromion. 2. Mild superior subluxation of the humeral head relative to the glenoid. 3. Degenerative changes seen at the acromioclavicular and glenohumeral joints. 4. Incidental note is made of a small sebaceous cyst in the anterior soft tissues. DATA REPOSITORY:
== END 2024-09-17 02:10 ==
LOC: DI 01:50
PROVIDERS: PCP Family Medicine; Visit Provider Student in an Organized Health Care Education/Training Program
DX: M75.122 Complete rotator cuff tear or rupture of left shoulder, not specified as traumatic (principal)
CPT/HCPCS: 73221

== ENCOUNTER → 2024-09-24 13:46 | Outpatient (BNVA) | payer MEDICARE, SELFPAY | PROVIDERS: PCP Family Medicine; Referring Provider Family Medicine; Visit Provider Student in an Organized Health Care Education/Training Program | DX: M75.102 Unspecified rotator cuff tear or rupture of left shoulder, not specified as traumatic (principal); M12.812 Other specific arthropathies, not elsewhere classified, left shoulder; S46.212A Strain of muscle, fascia and tendon of other parts of biceps, left arm, initial encounter | CPT/HCPCS: 99214 ==

== ENCOUNTER → 2024-10-09 08:19 | Outpatient (BNVA) | payer MEDICARE, SELFPAY | PROVIDERS: PCP Family Medicine; Referring Provider Family Medicine; Visit Provider Student in an Organized Health Care Education/Training Program | DX: Z98.890 Other specified postprocedural states (principal); M16.11 Unilateral primary osteoarthritis, right hip | CPT/HCPCS: 99213 ==

== ENCOUNTER 2025-01-08 19:59 | Outpatient (REF) | payer MEDICARE, SELFPAY ==
[2025-01-06 22:19] LABS: HCT 38.8 % (40.0-50.0); HGB 13.0 g/dL (13.5-17.5); MCH 31.3 pg (27.0-33.0); MCHC 33.5 % (32.0-36.0); MCV 94 fL (80-95); MPV 11.5 fL (8.0-11.0); Platelet Count 254 10^3/uL (130-400); RBC 4.15 10^6/uL (4.36-5.78); RDW 13.4 % (11.8-14.1); RDW-SD 45.7 fL; WBC 7.19 10^3/uL (4.4-10.8)
[2025-01-06 22:31] LABS: ALT 23 U/L (16-63); AST 21 U/L (15-37); Albumin 3.4 g/dL (3.4-5.0); Alkaline Phosphatase 80 U/L (46-116); Anion Gap 9.7 mmol/L (3-11); BUN 32 mg/dL (7-18); Bilirubin, Total 0.3 mg/dL (0.2-1.0); CO2 26.3 mmol/L (21.0-32.0); Calcium 9.2 mg/dL (8.5-10.1); Chloride 103 mmol/L (98-107); Estimated GFR 80.97 (mL/min/1.73m2); Glucose 100 mg/dL (74-106); Potassium 4.6 mmol/L (3.5-5.1); Sodium 139 mmol/L (136-145); Total Protein 6.6 g/dL (6.4-8.2)
== END 2025-01-08 20:00 | disposition home or self-care (01) ==
LOC: NCHCN 19:59
PROVIDERS: PCP Family Medicine; Visit Provider Family Medicine
DX: Z01.818 Encounter for other preprocedural examination (principal)
CPT/HCPCS: 80053; 85027